=== PATIENT | male | born 1955 | race Caucasian/White ===

== ENCOUNTER 2016-11-11 19:24 | Inpatient (IN) | payer MEDICARE ==
[~2016-11-11] VITALS: Ht 180.3 cm; Wt 149.7 kg
[~2016-11-11 19:24] MED LIST: AMLODIPINE10 MG PO; AUGMENTIN 875 M1 TAB PO; BLEPH-10 5 ML5 ML OP; BUMEX1 MG PO; BUSPAR10 MG PO; CIPROFLOXACIN500 MG PO; CLONIDINE0.2 MG PO; DIABETA5 MG PO; FLOMAX0.4 MG PO; FLUOXETINE40 MG PO; HUMALOG100 U/ML SQ; HUMULIN N100 UNIT/1 SC; HYDROCODONE BIT1 T11 PO; JANUVIA100 MG PO; K-Dur 20MEQ20 MEQ PO; LANTUS100 U/ML SC; LEVOFLOXACIN500 MG PO; LISINOPRIL/HCTZ1 TA1 PO; LISINOPRIL/HCTZ1 TA4 PO; LOPRESSOR100 MG PO; METOPROLOL SUC200 M1 PO; MINIPRESS2 M1 PO; NORCO 325 MG-51 TAB PO; NORCO 5-325 TA1 EACH PO; NORVASC10 MG PO; PAROXETINE HCL40 MG PO; PAXIL40 MG PO; PRAZOSIN HCL2 MG PO; PRINIVIL10 MG PO; TORADOL10 MG PO; ULTRAM50 MG PO; VICODIN ES 7501 TAB PO; VITAMIN D5000 I3 PO; VITAMIN D5000 IU PO; ZOVIRAX200 MG PO
[2016-11-11 19:30] VITALS: BP 134/84
[2016-11-11] MEDS ORDERED: OXYCODONE HCL5 MG PO (19:39)
[2016-11-11 20:16] LABS: BASO % 0.4 % (0.0-1.0); EOS # 0.2 10*3/uL (0.0-0.4); EOS % 1.6 % (1.0-4.0); IG # 0.2 10*3/uL (0.0-0.1); LYMPH # 1.4 10*3/uL (1.3-4.4); MEAN CELL VOLUME 89.7 fl (80.0-94.0); MEAN CORPUSCULAR HGB 30.8 pg (27.0-31.0); MEAN CORPUSCULAR HGB CONC 34.3 g/dl (33.0-37.0); MEAN PLATELET VOLUME 11.4 fl (9.6-12.3); MONO # 0.6 10*3/uL (0.1-1.0); MONO % 5.1 % (3.0-9.0); NEUT # 8.5 10*3/uL (2.3-7.9); NEUT % 78.3 % (47.0-73.0); PLATELET COUNT AUTOMATED 186 10*3/uL (130-400); WHITE BLOOD COUNT 10.8 10*3/uL (4.8-10.8)
[2016-11-11 20:28] LABS: INTERNATIONAL NORM RATIO 1.1 (2.0-3.5); PROTHROMBIN TIME 11.4 SECONDS (9.0-12.4)
[2016-11-11 20:34] LABS: ALBUMIN 3.5 gm/dl (3.1-4.5); ALKALINE PHOSPHATASE 113 U/L (45-117); BILIRUBIN, TOTAL 0.4 mg/dl (0.2-1.0); BUN 47 mg/dl (7-24); CARBON DIOXIDE 27 mmol/L (21-32); CHLORIDE 96 mmol/L (98-107); EST GLOM FILT AFRICAN AMERICAN 23 ml/min; GLUCOSE 290 mg/dL (65-99); MAGNESIUM 1.6 mg/dL (1.5-2.1); POTASSIUM 4.1 mmol/L (3.5-5.1); SGOT/AST 11 IU/L (3-35); SGPT/ALT 16 U/L (12-78); SODIUM 139 mmol/L (136-145); TOTAL PROTEIN 7.5 gm/dL (6.4-8.2)
[2016-11-11 20:38] LABS: TROPONIN I < 0.015 ng/ml (<0.045)
[2016-11-11 22:13] LABS: LA>2 REFLEX 2 HR DRAW NOW
[2016-11-11 22:57] LABS: LA>2 RFLX FOLLOW UP AT 2 HRS 3.1 mmol/L (0.4-2.0)
[2016-11-12] VITALS (8 sets, daily range): BP systolic 118–179; BP diastolic 50–82
[2016-11-12 00:32] LABS: LA>2 REFLEX 4 HR DRAW NOW
[2016-11-12 06:08] LABS: ALBUMIN 2.9 gm/dl (3.1-4.5); BILIRUBIN, TOTAL 0.3 mg/dl (0.2-1.0); MAGNESIUM 1.8 mg/dL (1.5-2.1); PHOSPHOROUS 4.8 mg/dL (2.5-4.9); POTASSIUM 3.8 mmol/L (3.5-5.1); TOTAL PROTEIN 6.4 gm/dL (6.4-8.2)
[2016-11-12 06:10] LABS: HEMOGLOBIN A1c 9.8 % (4.8-5.6)
[2016-11-12 06:14] LABS: BASO # 0.1 10*3/uL (0.0-0.1); BASO % 0.4 % (0.0-1.0); EOS # 0.3 10*3/uL (0.0-0.4); EOS % 2.7 % (1.0-4.0); HEMATOCRIT 32.2 % (42.0-52.0); HEMOGLOBIN 10.7 g/dl (14.0-18.0); IG # 0.2 10*3/uL (0.0-0.1); LYMPH # 2.1 10*3/uL (1.3-4.4); LYMPH % 18.4 % (27.0-41.0); MEAN CORPUSCULAR HGB 30.8 pg (27.0-31.0); MEAN CORPUSCULAR HGB CONC 33.2 g/dl (33.0-37.0); MEAN PLATELET VOLUME 11.3 fl (9.6-12.3); MONO # 0.8 10*3/uL (0.1-1.0); MONO % 6.7 % (3.0-9.0); NEUT % 70.3 % (47.0-73.0); PLATELET COUNT AUTOMATED 164 10*3/uL (130-400); RED BLOOD COUNT 3.47 10*6/uL (4.50-5.90); RED CELL DISTRI WIDTH 13.9 % (0-14.5); WHITE BLOOD COUNT 11.4 10*3/uL (4.8-10.8)
[2016-11-12 06:16] LABS: MEAN CELL VOLUME 92.8 fl (80.0-94.0)
[2016-11-12 06:21] LABS: INTERNATIONAL NORM RATIO 1.1 (2.0-3.5); PROTHROMBIN TIME 11.5 SECONDS (9.0-12.4)
[2016-11-12 06:59] LABS: VITAMIN D, 25-HYDROXY 28.1 ng/mL (30-100)
[2016-11-12 07:01] LABS: FOLIC ACID > 24.00 ng/mL (>5.38)
[2016-11-12] MEDS ORDERED: LASIX40 MG PO (16:12)
[2016-11-12] MEDS ORDERED: Lasix80 MG PO (16:12)
[2016-11-12] MEDS ORDERED: HYDRALAZINE HYD50 MG PO ×2 (16:14→16:15)
[2016-11-12] MEDS ORDERED: COZAAR100 MG PO (16:15)
[2016-11-12] MEDS ORDERED: RENAL VITAMIN0.8 MG PO (16:16)
[2016-11-12] MEDS ORDERED: LEVEMIR10 ML SQ (16:16)
[2016-11-13] VITALS: BP 161/62
[2016-11-13 07:23] LABS: POTASSIUM 3.8 mmol/L (3.5-5.1)
[2016-11-13 08:00] VITALS: BP 160/64
[2016-11-13 08:08] LABS: BASO # 0.1 10*3/uL (0.0-0.1); BASO % 0.5 % (0.0-1.0); EOS # 0.3 10*3/uL (0.0-0.4); HEMATOCRIT 32.1 % (42.0-52.0); HEMOGLOBIN 10.8 g/dl (14.0-18.0); IG # 0.1 10*3/uL (0.0-0.1); LYMPH # 1.3 10*3/uL (1.3-4.4); LYMPH % 13.2 % (27.0-41.0); MEAN CORPUSCULAR HGB 31.3 pg (27.0-31.0); MEAN CORPUSCULAR HGB CONC 33.6 g/dl (33.0-37.0); MEAN PLATELET VOLUME 9.7 fl (9.6-12.3); MONO # 0.7 10*3/uL (0.1-1.0); MONO % 7.3 % (3.0-9.0); NEUT # 7.4 10*3/uL (2.3-7.9); NEUT % 74.8 % (47.0-73.0); PLATELET COUNT AUTOMATED 174 10*3/uL (130-400); RED BLOOD COUNT 3.45 10*6/uL (4.50-5.90); WHITE BLOOD COUNT 9.9 10*3/uL (4.8-10.8)
[2016-11-13 11:24] LABS: BILIRUBIN 1+ (NEGATIVE); BLOOD TRACE-LYSED (NEGATIVE); CLARITY CLOUDY (CLEAR); COLOR YELLOW (YELLOW); GLUCOSE 1+ (NEGATIVE); KETONE TRACE (NEGATIVE); LEUKO ESTERASE NEGATIVE (NEGATIVE); NITRITE NEGATIVE (NEGATIVE); PROTEIN 3+ (NEGATIVE); SPECIFIC GRAVITY >= 1.030 (1.005-1.030); UROBILINOGEN 0.2 E.U./dl (0.2-1.0)
[2016-11-13 11:27] LABS: URINE AMPHETAMINES < 1000 (1000ng/ml); URINE BARBITURATES < 200 (200ng/ml); URINE COCAINE < 300 (300ng/ml)
[2016-11-13 11:52] LABS: BACTERIA 3+; URINE REFLEX COMMENT YES (NO)
[2016-11-13 12:00] VITALS: BP 169/52
[2016-11-13 16:10] VITALS: BP 141/59
[2016-11-13 20:00] VITALS: BP 157/74
[2016-11-14] VITALS: BP 156/56
[2016-11-14 06:52] LABS: POTASSIUM 3.7 mmol/L (3.5-5.1)
[2016-11-14 08:00] VITALS: BP 158/60
[2016-11-14 08:42] LABS: BASO % 0.3 % (0.0-1.0); EOS # 0.4 10*3/uL (0.0-0.4); EOS % 3.6 % (1.0-4.0); HEMATOCRIT 32.4 % (42.0-52.0); HEMOGLOBIN 11.1 g/dl (14.0-18.0); IG # 0.1 10*3/uL (0.0-0.1); LYMPH # 1.7 10*3/uL (1.3-4.4); LYMPH % 16.7 % (27.0-41.0); MEAN CELL VOLUME 90.5 fl (80.0-94.0); MEAN CORPUSCULAR HGB CONC 34.3 g/dl (33.0-37.0); MEAN PLATELET VOLUME 10.6 fl (9.6-12.3); MONO # 0.7 10*3/uL (0.1-1.0); MONO % 7.2 % (3.0-9.0); NEUT # 7.3 10*3/uL (2.3-7.9); PLATELET COUNT AUTOMATED 185 10*3/uL (130-400); RED BLOOD COUNT 3.58 10*6/uL (4.50-5.90); RED CELL DISTRI WIDTH 13.7 % (0-14.5); WHITE BLOOD COUNT 10.2 10*3/uL (4.8-10.8)
[2016-11-14 16:00] VITALS: BP 160/54
[2016-11-14 20:00] VITALS: BP 135/63; BP 137/64
[2016-11-15] VITALS: BP 117/57
[2016-11-15 06:43] LABS: BASO # 0.1 10*3/uL (0.0-0.1); BASO % 0.5 % (0.0-1.0); EOS # 0.4 10*3/uL (0.0-0.4); EOS % 3.8 % (1.0-4.0); HEMATOCRIT 34.1 % (42.0-52.0); HEMOGLOBIN 11.7 g/dl (14.0-18.0); IG # 0.2 10*3/uL (0.0-0.1); LYMPH # 1.8 10*3/uL (1.3-4.4); MEAN CELL VOLUME 90.7 fl (80.0-94.0); MEAN CORPUSCULAR HGB 31.1 pg (27.0-31.0); MEAN CORPUSCULAR HGB CONC 34.3 g/dl (33.0-37.0); MEAN PLATELET VOLUME 10.1 fl (9.6-12.3); MONO # 0.9 10*3/uL (0.1-1.0); MONO % 8.9 % (3.0-9.0); NEUT # 6.8 10*3/uL (2.3-7.9); NEUT % 67.1 % (47.0-73.0); PLATELET COUNT AUTOMATED 154 10*3/uL (130-400); RED BLOOD COUNT 3.76 10*6/uL (4.50-5.90); RED CELL DISTRI WIDTH 13.8 % (0-14.5); WHITE BLOOD COUNT 10.1 10*3/uL (4.8-10.8)
[2016-11-15 06:57] LABS: POTASSIUM 3.9 mmol/L (3.5-5.1)
[2016-11-15 08:00] VITALS: BP 130/70
[2016-11-15] MEDS ORDERED: SIMVASTATIN40 MG PO (10:49)
== END 2016-11-15 12:11 | disposition home or self-care (01) | DRG 391 ==
LOC: ED 19:24 → EDHOLD 22:06 → 4E 11-12 14:07
PROVIDERS: Emergency Medicine Emergency Medical Services; Hospitalist; Internal Medicine
PROC: 5A1D60Z (ICD-10-PCS; principal; 2016-11-12)
DX: K52.9 Noninfective gastroenteritis and colitis, unspecified (principal); N18.6 End stage renal disease; E87.2 Acidosis; E44.0 Moderate protein-calorie malnutrition; I12.0 Hypertensive chronic kidney disease with stage 5 chronic kidney disease or end stage renal disease; Z68.41 Body mass index [BMI] 40.0-44.9, adult; E11.22 Type 2 diabetes mellitus with diabetic chronic kidney disease; E83.51 Hypocalcemia; D64.9 Anemia, unspecified; E55.9 Vitamin D deficiency, unspecified; B95.8 Unspecified staphylococcus as the cause of diseases classified elsewhere; E11.65 Type 2 diabetes mellitus with hyperglycemia; E78.5 Hyperlipidemia, unspecified; E66.9 Obesity, unspecified; Z99.2 Dependence on renal dialysis; Z71.6 Tobacco abuse counseling; Z82.49 Family history of ischemic heart disease and other diseases of the circulatory system; Z83.3 Family history of diabetes mellitus; Z79.899 Other long term (current) drug therapy; Z79.4 Long term (current) use of insulin

== ENCOUNTER 2017-07-15 12:09 | Emergency (ER) | payer MEDICARE ==
[~2017-07-15] VITALS: Ht 180.3 cm; Wt 138.3 kg
[~2017-07-15 12:09] MED LIST changes: +COZAAR100 MG PO; +HYDRALAZINE HYD50 MG PO; +LASIX40 MG PO; +LEVEMIR10 ML SQ; +Lasix80 MG PO; +OXYCODONE HCL5 MG PO; +RENAL VITAMIN0.8 MG PO; +SIMVASTATIN40 MG PO
[2017-07-15 12:55] LABS: BASO % 0.3 % (0.0-1.0); EOS # 0.1 10*3/uL (0.0-0.4); HEMATOCRIT 28.9 % (42.0-52.0); HEMOGLOBIN 9.8 g/dl (14.0-18.0); LYMPH # 1.3 10*3/uL (1.3-4.4); LYMPH % 19.1 % (27.0-41.0); MEAN CELL VOLUME 90.3 fl (80.0-94.0); MEAN CORPUSCULAR HGB 30.6 pg (27.0-31.0); MEAN CORPUSCULAR HGB CONC 33.9 g/dl (33.0-37.0); MEAN PLATELET VOLUME 10.5 fl (9.6-12.3); MONO # 0.6 10*3/uL (0.1-1.0); MONO % 8.1 % (3.0-9.0); NEUT # 4.9 10*3/uL (2.3-7.9); NEUT % 70.6 % (47.0-73.0); PLATELET COUNT AUTOMATED 156 10*3/uL (130-400); RED CELL DISTRI WIDTH 13.5 % (0-14.5)
[2017-07-15 13:05] LABS: CREATININE 2.33 mg/dL (0.70-1.30); POTASSIUM 3.5 mmol/L (3.5-5.1)
[2017-07-15] MEDS ORDERED: TAMIFLU 75MG CA75 MG PO (13:52)
== END 2017-07-15 14:06 | disposition home or self-care (01) ==
LOC: ED 12:09
PROVIDERS: Emergency Medicine
DX: J11.1 Influenza due to unidentified influenza virus with other respiratory manifestations (principal); I12.0 Hypertensive chronic kidney disease with stage 5 chronic kidney disease or end stage renal disease; E11.22 Type 2 diabetes mellitus with diabetic chronic kidney disease; N18.6 End stage renal disease; Z79.899 Other long term (current) drug therapy; Z79.4 Long term (current) use of insulin

== ENCOUNTER → 2017-09-29 | Outpatient (CLI) | payer MEDICARE ==
[~2017-09-29] MED LIST changes: +TAMIFLU 75MG CA75 MG PO
== END | disposition home or self-care (01) ==
LOC: RESCLI 00:50
DX: I12.0 Hypertensive chronic kidney disease with stage 5 chronic kidney disease or end stage renal disease (principal); E11.22 Type 2 diabetes mellitus with diabetic chronic kidney disease; N18.6 End stage renal disease; N40.0 Benign prostatic hyperplasia without lower urinary tract symptoms; M95.8 Other specified acquired deformities of musculoskeletal system; F32.9 Major depressive disorder, single episode, unspecified; K21.9 Gastro-esophageal reflux disease without esophagitis; Z79.4 Long term (current) use of insulin; E66.01 Morbid (severe) obesity due to excess calories; Z68.41 Body mass index [BMI] 40.0-44.9, adult; Z99.2 Dependence on renal dialysis

== ENCOUNTER → 2017-10-27 | Outpatient (CLI) | payer MEDICARE | END | disposition home or self-care (01) | LOC: RESCLI 04:32 | DX: I12.0 Hypertensive chronic kidney disease with stage 5 chronic kidney disease or end stage renal disease (principal); E11.22 Type 2 diabetes mellitus with diabetic chronic kidney disease; N18.6 End stage renal disease; E66.01 Morbid (severe) obesity due to excess calories; N40.0 Benign prostatic hyperplasia without lower urinary tract symptoms; M95.8 Other specified acquired deformities of musculoskeletal system; F32.9 Major depressive disorder, single episode, unspecified; K21.9 Gastro-esophageal reflux disease without esophagitis; M79.89 Other specified soft tissue disorders; I73.9 Peripheral vascular disease, unspecified; R10.819 Abdominal tenderness, unspecified site; Z99.2 Dependence on renal dialysis; Z68.41 Body mass index [BMI] 40.0-44.9, adult; Z79.4 Long term (current) use of insulin; Z80.3 Family history of malignant neoplasm of breast ==

== ENCOUNTER → 2017-11-13 | Outpatient (CLI) | payer MEDICARE | END | disposition home or self-care (01) | LOC: US 11-03 03:57 | DX: I25.10 Atherosclerotic heart disease of native coronary artery without angina pectoris (principal); I73.9 Peripheral vascular disease, unspecified; R10.819 Abdominal tenderness, unspecified site; M79.604 Pain in right leg ==

== ENCOUNTER → 2017-11-17 | Outpatient (CLI) | payer MEDICARE | END | disposition home or self-care (01) | LOC: LAB 09:46 | DX: K76.0 Fatty (change of) liver, not elsewhere classified (principal) ==

== ENCOUNTER → 2017-11-24 | Outpatient (CLI) | payer MEDICARE | END | disposition home or self-care (01) | LOC: RESCLI 02:37 | DX: I12.0 Hypertensive chronic kidney disease with stage 5 chronic kidney disease or end stage renal disease (principal); E11.22 Type 2 diabetes mellitus with diabetic chronic kidney disease; N18.6 End stage renal disease; E66.01 Morbid (severe) obesity due to excess calories; K21.9 Gastro-esophageal reflux disease without esophagitis; I73.9 Peripheral vascular disease, unspecified; N40.0 Benign prostatic hyperplasia without lower urinary tract symptoms; F32.9 Major depressive disorder, single episode, unspecified; M79.89 Other specified soft tissue disorders; F17.200 Nicotine dependence, unspecified, uncomplicated; R10.819 Abdominal tenderness, unspecified site; Z99.2 Dependence on renal dialysis; Z68.41 Body mass index [BMI] 40.0-44.9, adult; Z79.4 Long term (current) use of insulin ==

== ENCOUNTER → 2017-11-26 | Outpatient (CLI) | payer MEDICARE ==
[2017-11-26 14:30] LABS: CHOLESTEROL 152 mg/dL (<200); HDL CHOLESTEROL 29 mg/dl (40-60); LDL CHOLESTEROL 77 mg/dL (9-159); TRIGLYCERIDES 228 mg/dl (<150); VLDL CHOLESTEROL 46 mg/dL (6-40)
== END | disposition home or self-care (01) ==
LOC: LAB 13:37
PROVIDERS: Internal Medicine
DX: E11.22 Type 2 diabetes mellitus with diabetic chronic kidney disease (principal); I73.9 Peripheral vascular disease, unspecified

== ENCOUNTER → 2017-12-31 | Outpatient (CLI) | payer MEDICARE | END | disposition home or self-care (01) | LOC: RESCLI 03:37 | DX: F32.9 Major depressive disorder, single episode, unspecified (principal); I12.0 Hypertensive chronic kidney disease with stage 5 chronic kidney disease or end stage renal disease; E11.22 Type 2 diabetes mellitus with diabetic chronic kidney disease; N18.6 End stage renal disease; K21.9 Gastro-esophageal reflux disease without esophagitis; I73.9 Peripheral vascular disease, unspecified; N40.0 Benign prostatic hyperplasia without lower urinary tract symptoms; E66.01 Morbid (severe) obesity due to excess calories; Z68.41 Body mass index [BMI] 40.0-44.9, adult; Z99.2 Dependence on renal dialysis; Z79.4 Long term (current) use of insulin; Z79.899 Other long term (current) drug therapy; Z87.891 Personal history of nicotine dependence ==

== ENCOUNTER 2018-06-11 10:57 | Inpatient (IN) | payer MEDICARE ==
[~2018-06-11] VITALS: Ht 180.3 cm; Wt 141.2 kg
--- NOTE | ~2018-06-11 | CON ---
[place], [place] REPORT OF CONSULTATION NAME: MILA ROTH UNIT #: [id number] ROOM: 406 DOCTOR: IRMA TAYLOR DMD BIRTHDATE: [birth year] DOS: 06/14/2018 Consultation for a right-sided facial swelling. On exam, minimal extraoral swelling noted. The patient denies any dyspnea or dysphagia. Intraoral exam, minimal tenderness in the right buccal vestibule. Teeth in extensive disrepair with extreme wear noted approximating the pulp chamber of multiple teeth. Tooth #6 is carious to the gumline. No other pulpal exposures are noted. Discussed treatment options with the patient. Recommend full mouth extraction and denture placement. Minimal treatment would be to have tooth #6 extracted. The patient chose to have treatment by private dentist due to cost. The patient is okay for dental discharge. Recommend finding private dentist for surgical extraction. IRMA TAYLOR DMD CM:CONSTR:REPORT OF CONSULTATION [id number] 06/15/18 0613 interface
[2018-06-11 11:01] VITALS: BP 145/51
[2018-06-11 11:27] LABS: BASO # 0.1 10*3/uL (0.0-0.1); BASO % 0.4 % (0.0-1.0); EOS # 0.3 10*3/uL (0.0-0.4); EOS % 2.3 % (1.0-4.0); HEMATOCRIT 34.1 % (42.0-52.0); HEMOGLOBIN 11.7 g/dl (14.0-18.0); LYMPH # 1.6 10*3/uL (1.3-4.4); LYMPH % 11.4 % (27.0-41.0); MEAN CELL VOLUME 92.4 fl (80.0-94.0); MEAN CORPUSCULAR HGB 31.7 pg (27.0-31.0); MEAN CORPUSCULAR HGB CONC 34.3 g/dl (33.0-37.0); MEAN PLATELET VOLUME 10.7 fl (9.6-12.3); MONO # 0.8 10*3/uL (0.1-1.0); MONO % 5.6 % (3.0-9.0); NEUT # 10.8 10*3/uL (2.3-7.9); NEUT % 78.7 % (47.0-73.0); PLATELET COUNT AUTOMATED 207 10*3/uL (130-400); RED BLOOD COUNT 3.69 10*6/uL (4.50-5.90); RED CELL DISTRI WIDTH 14.6 % (0-14.5); WHITE BLOOD COUNT 13.7 10*3/uL (4.8-10.8)
--- NOTE | 2018-06-11 11:46 | NUR ---
PT TO CT AT THIS TIME.---VALENTIN FIGUEREDO RN
[2018-06-11 11:58] LABS: ALBUMIN 3.1 gm/dl (3.1-4.5); CREATININE 3.36 mg/dL (0.70-1.30); POTASSIUM 3.3 mmol/L (3.5-5.1); TOTAL PROTEIN 7.4 gm/dL (6.4-8.2)
[2018-06-11] MEDS ORDERED: HYDROCODONE-AC1 EAC1 PO (12:06)
[2018-06-11] MEDS ORDERED: LANTUS SOL100 UNIT/1 SQ (12:08)
[2018-06-11] MEDS ORDERED: NOVOLOG10 ML SQ (12:09)
[2018-06-11] MEDS ORDERED: ASPIR LOW81 MG PO (12:14)
[2018-06-11] MEDS ORDERED: PROTONIX TR40 M1 PO (12:15)
[2018-06-11] MEDS ORDERED: METOPROLOL SUC100 M1 PO (12:16)
[2018-06-11] MEDS ORDERED: RENA-VITE1 TAB PO (12:17)
[2018-06-11] MEDS ORDERED: TAMSULOSIN HCL0.4 MG PO (12:17)
[2018-06-11] MEDS ORDERED: TERAZOSIN HCL2 M1 PO (12:18)
[2018-06-11] MEDS ORDERED: PAROXETINE40 MG PO (12:18)
[2018-06-11] MEDS ORDERED: LOSARTAN POTAS100 M1 PO (12:18)
[2018-06-11] MEDS ORDERED: VITAMIN B-121000 MC2 PO (12:20)
[2018-06-11] MEDS ORDERED: NEURONTIN300 MG PO (12:20)
[2018-06-11 14:13] VITALS: BP 115/46
[2018-06-11 14:30] VITALS: BP 131/46
--- NOTE | 2018-06-11 14:30 | NUR ---
A 62 YEAR OLD MALE PATIENT, admitted to [facility], under the services of BEV Curtis DO with a diagnosis of SAWYER, DENTAL ABSCESS. Chief complaint is DENTAL ABSCESS Patient arrived via CART WITH RN FROM ER Monitor applied. Initial assessment completed. Vital signs taken and recorded. See assessment for past medical history, medications and allergies. Patient and/or family oriented to unit. [facility] visitation policy reviewed. Clothing/patient valuable form completed. ZAIRA MOSS
--- NOTE | 2018-06-11 15:07 | NUR ---
[facility] CALLED TO DR ROBERTS OFFICE AT THIS TIME. STATES THEY WILL PASS CALL TO
--- NOTE | 2018-06-11 15:18 | NUR ---
MEDICATION RECONCILLIATION COMPLETED AT THIS TIME
--- NOTE | 2018-06-11 15:44 | NUR ---
DR TAYLOR CALLED AND MADE AWARE OF CONSULT AT THIS TIME. STATES HE CANNOT SEE PATIENT UNTIL THURSDAY. RN TO INFORM HOSPITALIST
[2018-06-11 15:45] VITALS: BP 115/55
--- NOTE | 2018-06-11 15:45 | NUR ---
HOSPITALIST DR POORNIMA BRANDT ON FLOOR AND MADE AWARE OF DR TAYLOR NOT BEING ABLE TOT SEE PATIENT UNTThursday
--- NOTE | 2018-06-11 19:02 | NUR ---
DR BRANDT MADE AWARE OF RN NOT BEING ABLE TO OBTAIN IV ACCESS AFTER MULTIPLE FAILED ATTEMPTS BY MULTIPLE RNS. STATES HE WILL PASS IT ALONG TO DR ALARCON ON THE NIGHT HOSPITALIST SHIFT.
[2018-06-11 20:00] VITALS: BP 166/66
--- NOTE | 2018-06-11 20:30 | NUR ---
IV SITE OBTAINED BY JAJA ALBERTO USING ULTRASOUND. 18G PLACED INTO RIGHT ANTECUBITAL. TOLERATED WELL BY PT. PHYSICIAN AWARE. IV FLUIDS INFUSING WITH EASE AT THIS TIME. DRESSING C/D/I. WILL CONTINUE TO MONITOR. CALL LIGHT IN REACH.
[2018-06-11 21:30] VITALS: BP 142/82
--- NOTE | 2018-06-11 22:00 | NUR ---
HS MEDICATIONS GIVEN AT THIS TIME. ASSESSMENT COMPLETE. IV FLUIDS INFUSING.PT ALERT ORIENTED AND PLEASANT MOOD. COOPERATIVE WITH STAFF. NO COMPLAINTS VOICED. RESPIRATIONS EASY AND UNLABORED ON ROOM AIR. BLOOD SUGAR OBTAINED, 201. 5 UNITS HUMALOG GIVEN PER ORDER. SNACK PROVIDED PER PT REQUEST. ALL NEEDS MET. WILL CONTINUE TO MONITOR. CALL LIGHT IN REACH.
[2018-06-12] VITALS: BP 146/77
--- NOTE | 2018-06-12 00:20 | NUR ---
24 HR chart check completed.
[2018-06-12 06:52] LABS: CREATININE 4.74 mg/dL (0.70-1.30); PHOSPHOROUS 4.9 mg/dL (2.5-4.9); POTASSIUM 3.4 mmol/L (3.5-5.1)
[2018-06-12 06:59] LABS: THYROID STIM HORMONE (HS) 1.33 uIU/ml (0.358-4.75)
[2018-06-12 07:01] LABS: BASO # 0.1 10*3/uL (0.0-0.1); BASO % 0.4 % (0.0-1.0); EOS # 0.4 10*3/uL (0.0-0.4); EOS % 3.1 % (1.0-4.0); HEMATOCRIT 32.2 % (42.0-52.0); HEMOGLOBIN 10.9 g/dl (14.0-18.0); LYMPH # 1.7 10*3/uL (1.3-4.4); LYMPH % 14.3 % (27.0-41.0); MEAN CELL VOLUME 92.5 fl (80.0-94.0); MEAN CORPUSCULAR HGB 31.3 pg (27.0-31.0); MEAN CORPUSCULAR HGB CONC 33.9 g/dl (33.0-37.0); MEAN PLATELET VOLUME 11.2 fl (9.6-12.3); MONO # 0.8 10*3/uL (0.1-1.0); MONO % 6.4 % (3.0-9.0); NEUT # 8.7 10*3/uL (2.3-7.9); NEUT % 74.3 % (47.0-73.0); RED BLOOD COUNT 3.48 10*6/uL (4.50-5.90); RED CELL DISTRI WIDTH 14.9 % (0-14.5); WHITE BLOOD COUNT 11.7 10*3/uL (4.8-10.8)
[2018-06-12 07:03] LABS: PLATELET COUNT AUTOMATED 140 10*3/uL (130-400)
[2018-06-12 12:00] VITALS: BP 135/66
[2018-06-12 16:00] VITALS: BP 158/62
--- NOTE | 2018-06-12 19:59 | NUR ---
TOOK OVER CARE OF PT. PT SITTING UP IN BED, ALERT ORIENTED AND PLEASANT MOOD. RESPIRATIONS EASY AND UNLABORED ON ROOM AIR. NO COMPLAINTS VOICED AT THIS TIME. ALL NEEDS MET. CALL LIGHT IN REACH.
[2018-06-12 20:00] VITALS: BP 151/91
--- NOTE | 2018-06-12 22:00 | NUR ---
HS MEDICATIONS TAKEN WITH EASE. COVERAGE GIVEN FOR BLOOD SUGAR OF 347. SNACK PROVIDED PER PT REQUEST. WILL CONTINUE TO MONITOR. CALL LIGHT IN REACH.
[2018-06-13] VITALS: BP 158/88
[2018-06-13 06:26] LABS: BASO # 0.1 10*3/uL (0.0-0.1); BASO % 0.4 % (0.0-1.0); EOS # 0.3 10*3/uL (0.0-0.4); EOS % 2.8 % (1.0-4.0); HEMATOCRIT 30.9 % (42.0-52.0); HEMOGLOBIN 10.3 g/dl (14.0-18.0); LYMPH # 1.7 10*3/uL (1.3-4.4); LYMPH % 15.1 % (27.0-41.0); MEAN CORPUSCULAR HGB 30.7 pg (27.0-31.0); MEAN CORPUSCULAR HGB CONC 33.3 g/dl (33.0-37.0); MEAN PLATELET VOLUME 10.9 fl (9.6-12.3); MONO # 0.6 10*3/uL (0.1-1.0); MONO % 5.6 % (3.0-9.0); NEUT # 8.3 10*3/uL (2.3-7.9); NEUT % 74.8 % (47.0-73.0); PLATELET COUNT AUTOMATED 158 10*3/uL (130-400); RED BLOOD COUNT 3.36 10*6/uL (4.50-5.90); RED CELL DISTRI WIDTH 14.5 % (0-14.5); WHITE BLOOD COUNT 11.1 10*3/uL (4.8-10.8)
--- NOTE | 2018-06-13 06:27 | NUR ---
PT RESTING IN BED, RESPIRATIONS EASY AND UNLABORED ON ROOM AIR. BLOOD SUGAR OBTAINED. 271, WILL COVER PER ORDER. IV ANTIBIOTICS INFUSING WITH EASE INTO RIGHT ARM IV SITE. NO COMPLAINTS VOICED BY PT AT THIS TIME. WILL CONTINUE TO MONITOR. CALL LIGHT IN REACH.
[2018-06-13 06:36] LABS: ALBUMIN 2.6 gm/dl (3.1-4.5); CREATININE 5.59 mg/dL (0.70-1.30); POTASSIUM 3.6 mmol/L (3.5-5.1); TOTAL PROTEIN 6.5 gm/dL (6.4-8.2)
[2018-06-13 08:00] VITALS: BP 141/87
[2018-06-13 12:00] VITALS: BP 115/86
--- NOTE | 2018-06-13 12:00 | NUR ---
SPOKE TO DR. TAYLOR, HE STATED IF PATIENT IS GOING TO STAY AGAIN TONIGHT HE WILL SEE PATIENT TOMORROW, DR. SON NOTIFIED
[2018-06-13 16:00] VITALS: BP 149/64
--- NOTE | 2018-06-13 18:12 | NUR ---
PT ALERTED NURSE TO PAIN AT IV SITE TO RIGHT ANTECUBITAL. FLUIDS STOPPED AND NEW SITE STARTED TO RIGHT WRIST WITH 22G X 1 ATTEMPT. PT TOLERATED WELL, BLOOD RETURN NOTED WITH NO PROBLEMS FLUSHING, IV INFUSING WITHOUT DIFFICULTY AT THIS TIME.
--- NOTE | 2018-06-13 18:25 | NUR ---
PT SEEN BY DR. ROBERTS AT THIS TIME.
[2018-06-13 20:00] VITALS: BP 160/53
[2018-06-14] VITALS: BP 115/56
--- NOTE | 2018-06-14 04:06 | NUR ---
PATIENT RESTING WITH NO S/S OF DISTRESS. BED IN LOWEST POSITION, CALL LIGHT IN REACH
[2018-06-14 08:00] VITALS: BP 140/50
--- NOTE | 2018-06-14 09:00 | NUR ---
Detention Officer in to talk to patient. Patient states lives at home with . There are few steps in the home. Physician: sapna lopez Pharmacy: [facility] health services: none Patient's level of ADLs: INDEPENDENT Patient has working utilities: all working DME: walker Follow-up physician's appointment after d/c: will be made by hospitalist nurse director upon discharge Does patient want to access PORTAL?: no Discharge plan discussed with patient, patient lives at home with , he uses a walker for ambulation, patient goes to dialysis Thursday, Thursday and Thursday and uses [facility] services for transportation, patient states he will be going home when able. discussed with him [facility] and he declines any services at this time, case management will follow for any needs. GENE DE LA CRUZ
[2018-06-14 12:00] VITALS: BP 110/52
--- NOTE | 2018-06-14 12:30 | NUR ---
PT SENT TO DIALYSIS
[2018-06-14 14:41] LABS: ALBUMIN 2.7 gm/dl (3.1-4.5); CREATININE 6.34 mg/dL (0.70-1.30); PHOSPHOROUS 6.1 mg/dL (2.5-4.9); POTASSIUM 3.8 mmol/L (3.5-5.1)
[2018-06-14 20:00] VITALS: BP 160/55
--- NOTE | 2018-06-14 20:58 | NUR ---
DR METZGER AWARE OF PATIENT BLOOD SUGAR RESULT. STATES ONLY TO GIVE 25 UNITS OF LANTUS TONIGHT.
--- NOTE | 2018-06-14 21:32 | NUR ---
MEDICATED WITH PRN NORCO FOR C/O PAIN RATED 7/10 ON A 0/10 PAIN SCALE
[2018-06-15] VITALS: BP 142/49
--- NOTE | 2018-06-15 05:17 | NUR ---
PATIENT CALLED OUT STATING HIS SUGAR FELT LOW. FINGER STICK 59. JUICE, CRACKERS, AND PEANUT BUTTER GIVEN.
--- NOTE | 2018-06-15 06:04 | NUR ---
BLOOD SUGAR RECHECK 120
[2018-06-15 08:00] VITALS: BP 126/81
--- NOTE | 2018-06-15 09:00 | NUR ---
case management visits with patient, patient states he will be going home when able and denies any home needs
[2018-06-15] MEDS ORDERED: CLEOCIN HCL300 MG PO (11:44)
[2018-06-15] MEDS ORDERED: FLORASTOR250 MG PO (11:44)
[2018-06-15 12:00] VITALS: BP 161/71
--- NOTE | 2018-06-15 15:32 | NUR ---
[facility] Discharge instructions reviewed with patient/family. Patient receptive and verbalizes understanding. Follow-up care arranged. Written instructions given to patient/family. LYNDA PATINO
== END 2018-06-15 15:15 | disposition home or self-care (01) | DRG 871 ==
LOC: ED 10:57 → 4E 13:22 → EDHOLD 13:22 → 4E 13:29
PROVIDERS: Internal Medicine Nephrology; Nurse Practitioner Family; Student in an Organized Health Care Education/Training Program; ADMIT Internal Medicine
PROC: 5A1D70Z Performance of Urinary Filtration, Intermittent, Less than 6 Hours Per Day (ICD-10-PCS; principal; 2018-06-14)
DX: A41.9 Sepsis, unspecified organism (principal); N18.6 End stage renal disease; E87.2 Acidosis; E87.1 Hypo-osmolality and hyponatremia; E44.0 Moderate protein-calorie malnutrition; Z68.41 Body mass index [BMI] 40.0-44.9, adult; N17.9 Acute kidney failure, unspecified; I12.0 Hypertensive chronic kidney disease with stage 5 chronic kidney disease or end stage renal disease; K04.7 Periapical abscess without sinus; E55.9 Vitamin D deficiency, unspecified; D64.9 Anemia, unspecified; E11.65 Type 2 diabetes mellitus with hyperglycemia; E66.9 Obesity, unspecified; E78.5 Hyperlipidemia, unspecified; F17.290 Nicotine dependence, other tobacco product, uncomplicated; K02.9 Dental caries, unspecified; K05.6 Periodontal disease, unspecified; E11.22 Type 2 diabetes mellitus with diabetic chronic kidney disease; E87.6 Hypokalemia; E87.8 Other disorders of electrolyte and fluid balance, not elsewhere classified; D72.829 Elevated white blood cell count, unspecified; Z71.6 Tobacco abuse counseling; Z99.2 Dependence on renal dialysis; Z79.4 Long term (current) use of insulin; Z90.5 Acquired absence of kidney; Z83.3 Family history of diabetes mellitus; Z82.49 Family history of ischemic heart disease and other diseases of the circulatory system; Z82.0 Family history of epilepsy and other diseases of the nervous system; Z79.899 Other long term (current) drug therapy

== ENCOUNTER → 2018-06-24 | Outpatient (CLI) | payer MEDICARE ==
[~2018-06-24] MED LIST changes: +ASPIR LOW81 MG PO; +CLEOCIN HCL300 MG PO; +FLORASTOR250 MG PO; +HYDROCODONE-AC1 EAC1 PO; +LANTUS SOL100 UNIT/1 SQ; +LOSARTAN POTAS100 M1 PO; +METOPROLOL SUC100 M1 PO; +NEURONTIN300 MG PO; +NOVOLOG10 ML SQ; +PAROXETINE40 MG PO; +PROTONIX TR40 M1 PO; +RENA-VITE1 TAB PO; +TAMSULOSIN HCL0.4 MG PO; +TERAZOSIN HCL2 M1 PO; +VITAMIN B-121000 MC2 PO
[2018-06-24 12:45] LABS: BILIRUBIN 1+ (NEGATIVE); BLOOD NEGATIVE (NEGATIVE); CLARITY SL CLOUDY (CLEAR); COLOR YELLOW (YELLOW); GLUCOSE NEGATIVE (NEGATIVE); KETONE 1+ (NEGATIVE); LEUKO ESTERASE 1+ (NEGATIVE); NITRITE NEGATIVE (NEGATIVE); SPECIFIC GRAVITY >= 1.030 (1.005-1.030); UROBILINOGEN 0.2 E.U./dl (0.2-1.0)
[2018-06-24 12:58] LABS: MUCOUS 1+; WBC 31-40 wbc/hpf (0-5)
== END | disposition home or self-care (01) ==
LOC: LAB 12:04
PROVIDERS: Urology
DX: C64.9 Malignant neoplasm of unspecified kidney, except renal pelvis (principal); R31.9 Hematuria, unspecified; D40.0 Neoplasm of uncertain behavior of prostate

== ENCOUNTER → 2018-07-23 | Outpatient (CLI) | payer MEDICARE | END | disposition home or self-care (01) | LOC: RESCLI 01:57 | DX: I13.2 Hypertensive heart and chronic kidney disease with heart failure and with stage 5 chronic kidney disease, or end stage renal disease (principal); E11.22 Type 2 diabetes mellitus with diabetic chronic kidney disease; N18.6 End stage renal disease; I50.32 Chronic diastolic (congestive) heart failure; E11.65 Type 2 diabetes mellitus with hyperglycemia; E11.49 Type 2 diabetes mellitus with other diabetic neurological complication; E66.01 Morbid (severe) obesity due to excess calories; E53.8 Deficiency of other specified B group vitamins; K21.9 Gastro-esophageal reflux disease without esophagitis; N40.0 Benign prostatic hyperplasia without lower urinary tract symptoms; F32.5 Major depressive disorder, single episode, in full remission; Z99.2 Dependence on renal dialysis; Z79.4 Long term (current) use of insulin; Z79.899 Other long term (current) drug therapy; Z88.8 Allergy status to other drugs, medicaments and biological substances ==

== ENCOUNTER → 2018-10-01 | Outpatient (CLI) | payer MEDICARE | END | disposition home or self-care (01) | LOC: RESCLI 03:24 | DX: E11.65 Type 2 diabetes mellitus with hyperglycemia (principal); E11.49 Type 2 diabetes mellitus with other diabetic neurological complication; I13.2 Hypertensive heart and chronic kidney disease with heart failure and with stage 5 chronic kidney disease, or end stage renal disease; E11.22 Type 2 diabetes mellitus with diabetic chronic kidney disease; N18.6 End stage renal disease; I50.32 Chronic diastolic (congestive) heart failure; K21.9 Gastro-esophageal reflux disease without esophagitis; N40.0 Benign prostatic hyperplasia without lower urinary tract symptoms; F32.5 Major depressive disorder, single episode, in full remission; E78.2 Mixed hyperlipidemia; M54.5 Low back pain; Z79.4 Long term (current) use of insulin; Z99.2 Dependence on renal dialysis ==

== ENCOUNTER → 2018-12-21 | Outpatient (CLI) | payer MEDICARE | END | disposition home or self-care (01) | LOC: RESCLI 01:43 | DX: E11.65 Type 2 diabetes mellitus with hyperglycemia (principal); K21.9 Gastro-esophageal reflux disease without esophagitis; F32.5 Major depressive disorder, single episode, in full remission; I13.2 Hypertensive heart and chronic kidney disease with heart failure and with stage 5 chronic kidney disease, or end stage renal disease; E11.22 Type 2 diabetes mellitus with diabetic chronic kidney disease; I50.32 Chronic diastolic (congestive) heart failure; N18.6 End stage renal disease; E78.2 Mixed hyperlipidemia; M54.41 Lumbago with sciatica, right side; G89.29 Other chronic pain; Z79.4 Long term (current) use of insulin ==

== ENCOUNTER → 2019-04-05 | Outpatient (CLI) | payer MEDICARE | END | disposition home or self-care (01) | LOC: RESCLI 01:45 | DX: I13.2 Hypertensive heart and chronic kidney disease with heart failure and with stage 5 chronic kidney disease, or end stage renal disease (principal); E11.49 Type 2 diabetes mellitus with other diabetic neurological complication; E11.22 Type 2 diabetes mellitus with diabetic chronic kidney disease; I50.32 Chronic diastolic (congestive) heart failure; N18.6 End stage renal disease; F32.5 Major depressive disorder, single episode, in full remission; G89.29 Other chronic pain; M54.5 Low back pain; E55.9 Vitamin D deficiency, unspecified; R35.0 Frequency of micturition; N40.1 Benign prostatic hyperplasia with lower urinary tract symptoms; E78.5 Hyperlipidemia, unspecified; Z99.2 Dependence on renal dialysis; Z79.899 Other long term (current) drug therapy; Z88.8 Allergy status to other drugs, medicaments and biological substances ==

== ENCOUNTER 2019-11-06 18:56 | Inpatient (IN) | payer MEDICARE ==
[~2019-11-06] VITALS: Ht 180.3 cm; Wt 136.2 kg
[2019-11-06] VITALS (7 sets, daily range): BP systolic 185–215; BP diastolic 75–99
[2019-11-06 19:56] LABS: BASO # 0.1 10*3/uL (0.0-0.1); BASO % 0.4 % (0.0-1.0); EOS # 0.1 10*3/uL (0.0-0.4); EOS % 0.6 % (1.0-4.0); HEMATOCRIT 32.3 % (42.0-52.0); LYMPH # 0.9 10*3/uL (1.3-4.4); LYMPH % 6.7 % (27.0-41.0); MEAN CELL VOLUME 93.6 fl (80.0-94.0); MEAN CORPUSCULAR HGB 31.9 pg (27.0-31.0); MEAN CORPUSCULAR HGB CONC 34.1 g/dl (33.0-37.0); MEAN PLATELET VOLUME 10.7 fl (9.6-12.3); MONO # 0.6 10*3/uL (0.1-1.0); MONO % 4.2 % (3.0-9.0); NEUT # 12.2 10*3/uL (2.3-7.9); NEUT % 87.2 % (47.0-73.0); PLATELET COUNT AUTOMATED 179 10*3/uL (130-400); RED BLOOD COUNT 3.45 10*6/uL (4.50-5.90)
[2019-11-06 20:12] LABS: ALBUMIN 3.3 gm/dl (3.1-4.5); CREATININE 5.46 mg/dL (0.70-1.30); TOTAL PROTEIN 7.5 gm/dL (6.4-8.2)
--- NOTE | 2019-11-06 20:15 | NUR ---
SPOKE WITH PATIENTS AND INFORMED HER AWAITING LABS AND XRAY. PATIENT GAVE CONSENT FOR ME TO SPEAK WITH .
[2019-11-06 20:20] LABS: THYROID STIM HORMONE (HS) 1.31 uIU/ml (0.358-4.75)
[2019-11-06 22:40] LABS: CREATININE 5.11 mg/dL (0.70-1.30); POTASSIUM 4.4 mmol/L (3.5-5.1)
--- NOTE | 2019-11-06 23:40 | NUR ---
IV INFILTRATED AT THIS TIME. LOOKING FOR NEW IV SITE.
[2019-11-07] VITALS (7 sets, daily range): BP systolic 140–181; BP diastolic 60–110
--- NOTE | 2019-11-07 00:37 | NUR ---
PATIENTS INFORMED OF ADMISSION PER PATIENTS REQUEST FOR ME TO CALL AND INFORM HER.
--- NOTE | 2019-11-07 01:25 | NUR ---
A 64, admitted to 5E, under the services of BEV Cornell DO with a diagnosis of HYPERGLYCEMIA, ACCELERATED HTN. Chief complaint is NAUSEA/VOMITING. Patient arrived via bed from ER. Monitor applied. Initial assessment completed. Vital signs taken and recorded. BEV CORNELL DO notified of admission to the unit. Orders received. See assessment for past medical history, medications and allergies. Patient and/or family oriented to unit. [address] visitation policy reviewed. Clothing/patient valuable form completed. NO OPEN WOUNDS ON ADMISSION. MULTIPLE SCABS/SCRATCHES. MEAGAN CARBAJAL
[2019-11-07] MEDS ORDERED: NEURONTIN100 MG PO (02:17)
[2019-11-07] MEDS ORDERED: Percocet 325 MG1 TAB PO (02:19)
[2019-11-07] MEDS ORDERED: SIMVASTATIN40 MG PO (02:20)
[2019-11-07] MEDS ORDERED: VITAMIN D350 MC2 PO (02:22)
[2019-11-07] MEDS ORDERED: CALCIUM ACETAT667 MG PO (02:24)
[2019-11-07] MEDS ORDERED: HYDRALAZINE HYD50 MG PO (02:26)
--- NOTE | 2019-11-07 02:28 | NUR ---
UPDATED MED REC PER MEDICATIONS PROVIDED BY PATIENT. PATIENT STATES THAT THE MEDICATIONS HE BROUGHT WITH HIM ARE HIS ONLY MEDICATIONS THAT HE TAKES EXCEPT HE DOES NOT HAVE HIS INSULINS WITH HIM
--- NOTE | 2019-11-07 02:35 | NUR ---
DR GASTELUM NOTIFIED OF UPDATED MED REC, BP 170/70 MANUALLY,& CRITICAL LACTIC OF 3.2. STATES THAT I CAN HOLD THE SEPSIS BOLUS PROTOCOL FLUIDS DUE TO EDEMATOUS LEGS AND CRACKLES IN THE BASES OF PATIENTS LUNGS. NO NEW ORDERS AT THIS TIME.
[2019-11-07 02:54] LABS: BILIRUBIN NEGATIVE (NEGATIVE); BLOOD 1+ (NEGATIVE); CLARITY CLEAR (CLEAR); COLOR YELLOW (YELLOW); GLUCOSE 3+ (NEGATIVE); KETONE NEGATIVE (NEGATIVE); LEUKO ESTERASE NEGATIVE (NEGATIVE); NITRITE NEGATIVE (NEGATIVE); PH 7.5 (5.0-9.0); UROBILINOGEN 0.2 E.U./dl (0.2-1.0)
[2019-11-07 03:01] LABS: RBC 21-30 rbc/hpf (0-2); WBC 0-2 wbc/hpf (0-5)
[2019-11-07 03:02] LABS: BACTERIA TRACE
[2019-11-07 03:41] LABS: BASO # 0.1 10*3/uL (0.0-0.1); BASO % 0.4 % (0.0-1.0); EOS # 0.1 10*3/uL (0.0-0.4); EOS % 0.4 % (1.0-4.0); HEMATOCRIT 32.5 % (42.0-52.0); LYMPH # 1.5 10*3/uL (1.3-4.4); LYMPH % 10.5 % (27.0-41.0); MEAN CELL VOLUME 95.9 fl (80.0-94.0); MEAN CORPUSCULAR HGB 31.3 pg (27.0-31.0); MEAN CORPUSCULAR HGB CONC 32.6 g/dl (33.0-37.0); MEAN PLATELET VOLUME 10.9 fl (9.6-12.3); MONO # 0.7 10*3/uL (0.1-1.0); MONO % 4.8 % (3.0-9.0); NEUT # 11.7 10*3/uL (2.3-7.9); NEUT % 83.1 % (47.0-73.0); PLATELET COUNT AUTOMATED 173 10*3/uL (130-400); RED BLOOD COUNT 3.39 10*6/uL (4.50-5.90); RED CELL DISTRI WIDTH 14.2 % (0-14.5)
[2019-11-07 03:54] LABS: CREATININE 5.46 mg/dL (0.70-1.30); POTASSIUM 4.2 mmol/L (3.5-5.1)
--- NOTE | 2019-11-07 04:17 | NUR ---
DR GASTELUM NOTIFIED OF CRITICAL LACTIC ACID OF 2.6.
--- NOTE | 2019-11-07 06:33 | NUR ---
NEW PATIENT CONSULT CALLED INTO DR YAO ANSWERING SERVICE.
--- NOTE | 2019-11-07 06:34 | NUR ---
[facility] NOTIFIED OF PT HAVING DIALYSIS MWF.
--- NOTE | 2019-11-07 08:07 | NUR ---
PHYSICAL THERAPY Physical therapy screen received and chart reviewed. Patient admitted for hypoglycemia. Recommend skilled PT evaluation if decline in functional mobility presents. Thank you. Arianna Alvarez,PT,DPT
--- NOTE | 2019-11-07 08:17 | NUR ---
Nursing screen received and chart reviewed. Patient admitted from home for hyperglycemia. If patient has a decline in ADLs, transfers, or functional mobility, please send OT orders. Thank you. Eloina Hines, OTR/L
--- NOTE | 2019-11-07 12:01 | NUR ---
Mission Commander in to talk to patient. Patient states lives at HOME with . There are 12 steps in the home. Physician: [facility] Pharmacy: [facility] Home health services: NONE Patient's level of ADLs: INDEPENDENT Patient has working utilities: YES DME: WALKING STICK Follow-up physician's appointment after d/c: WILL BE MADE BY HOSPITALIST NURSE DIRECTOR ON DISCHARGE Does patient want to access PORTAL?: NO Discharge plan PT LIVES AT HOME WITH HIS AND IS INDEPENDENT IN HIS CARE. STATES HE HAS DIALYSIS ON MWF. DENIES HE WILL HAVE ANY NEEDS ON DISCHARGE. PLAN IS TO RETURN HOME WHEN MEDICALLY STABLE. WILL TRANSPORT HIM HOME. WILL CONTINUE TO FOLLOW. . TAMIE LUNDY
--- NOTE | 2019-11-07 18:53 | NUR ---
NOTIFIED OF BP 212/92 MANUAL, NEW ORDERS GIVEN WILL RECHECK BP IN 1 HOUR, D/C ON HOLD AT THIS TIME
[2019-11-07 19:41] LABS: BASO # 0.1 10*3/uL (0.0-0.1); BASO % 0.3 % (0.0-1.0); EOS # 0.2 10*3/uL (0.0-0.4); EOS % 1.5 % (1.0-4.0); HEMATOCRIT 34.6 % (42.0-52.0); LYMPH % 12.9 % (27.0-41.0); MEAN CORPUSCULAR HGB 31.6 pg (27.0-31.0); MEAN CORPUSCULAR HGB CONC 34.7 g/dl (33.0-37.0); MEAN PLATELET VOLUME 11.9 fl (9.6-12.3); MONO # 0.7 10*3/uL (0.1-1.0); MONO % 4.4 % (3.0-9.0); NEUT # 12.5 10*3/uL (2.3-7.9); NEUT % 79.3 % (47.0-73.0); PLATELET COUNT AUTOMATED 213 10*3/uL (130-400); RED CELL DISTRI WIDTH 14.1 % (0-14.5); WHITE BLOOD COUNT 15.8 10*3/uL (4.8-10.8)
[2019-11-07 19:42] LABS: MEAN CELL VOLUME 91.1 fl (80.0-94.0)
--- NOTE | 2019-11-07 21:14 | NUR ---
SPOKE TO DR SINCLAIR, STATES PATIENT IS OKAY TO GO. EXPLAINED THAT APRESOLINE X1 ITME WAS NEVER GIVEN, BUT BLOOD PRESSURE IS DOWN TO 158/60 MANUALLY, PULSE 72. STATES TO GIVE NIGHT TIME MEDICATIONS AND PATIENT CAN BE D/C.
[2019-11-07 21:19] LABS: CREATININE 3.66 mg/dL (0.70-1.30); POTASSIUM 3.8 mmol/L (3.5-5.1)
--- NOTE | 2019-11-07 21:42 | NUR ---
Discharge instructions reviewed with patient/family. Patient receptive and verbalizes understanding. Follow-up care arranged. Written instructions given to patient/family. Hep lock removed to right hand. Patients down in ER parking lot. Patient off floor at this time. MEAGAN CARBAJAL
== END 2019-11-07 21:50 | disposition home or self-care (01) | DRG 637 ==
LOC: ED 18:56 → EDHOLD 23:53 → 5E 11-07 00:10
PROVIDERS: Emergency Medicine; Internal Medicine Nephrology; Student in an Organized Health Care Education/Training Program; ADMIT Internal Medicine
PROC: 5A1D70Z Performance of Urinary Filtration, Intermittent, Less than 6 Hours Per Day (ICD-10-PCS; principal; 2019-11-07)
DX: E11.65 Type 2 diabetes mellitus with hyperglycemia (principal); N18.6 End stage renal disease; I16.1 Hypertensive emergency; E87.2 Acidosis; E87.1 Hypo-osmolality and hyponatremia; E44.0 Moderate protein-calorie malnutrition; Z68.41 Body mass index [BMI] 40.0-44.9, adult; I12.0 Hypertensive chronic kidney disease with stage 5 chronic kidney disease or end stage renal disease; D64.9 Anemia, unspecified; E78.5 Hyperlipidemia, unspecified; R53.1 Weakness; D72.829 Elevated white blood cell count, unspecified; E11.22 Type 2 diabetes mellitus with diabetic chronic kidney disease; Z79.4 Long term (current) use of insulin; Z99.2 Dependence on renal dialysis; Z90.5 Acquired absence of kidney; Z87.891 Personal history of nicotine dependence; Z82.49 Family history of ischemic heart disease and other diseases of the circulatory system; Z83.3 Family history of diabetes mellitus; Z82.0 Family history of epilepsy and other diseases of the nervous system; Z79.899 Other long term (current) drug therapy

== ENCOUNTER → 2019-11-24 | Outpatient (CLI) | payer MEDICARE ==
[~2019-11-24] MED LIST changes: +CALCIUM ACETAT667 MG PO; +NEURONTIN100 MG PO; +Percocet 325 MG1 TAB PO; +VITAMIN D350 MC2 PO
== END | disposition home or self-care (01) ==
LOC: RESCLI 00:59
DX: E11.65 Type 2 diabetes mellitus with hyperglycemia (principal); I13.2 Hypertensive heart and chronic kidney disease with heart failure and with stage 5 chronic kidney disease, or end stage renal disease; E11.22 Type 2 diabetes mellitus with diabetic chronic kidney disease; N18.6 End stage renal disease; I50.32 Chronic diastolic (congestive) heart failure; M54.5 Low back pain; E55.9 Vitamin D deficiency, unspecified; N40.1 Benign prostatic hyperplasia with lower urinary tract symptoms; F32.5 Major depressive disorder, single episode, in full remission; Z99.2 Dependence on renal dialysis; Z90.5 Acquired absence of kidney; Z98.890 Other specified postprocedural states; Z79.899 Other long term (current) drug therapy

== ENCOUNTER → 2020-02-21 | Outpatient (CLI) | payer MEDICARE | END | disposition home or self-care (01) | LOC: RESCLI 01:24 | PROVIDERS: ATTEND Social Worker Clinical | DX: I12.0 Hypertensive chronic kidney disease with stage 5 chronic kidney disease or end stage renal disease (principal); E11.22 Type 2 diabetes mellitus with diabetic chronic kidney disease; N18.6 End stage renal disease; E11.319 Type 2 diabetes mellitus with unspecified diabetic retinopathy without macular edema; E78.5 Hyperlipidemia, unspecified; I10 Essential (primary) hypertension; E55.9 Vitamin D deficiency, unspecified; G89.29 Other chronic pain; E11.40 Type 2 diabetes mellitus with diabetic neuropathy, unspecified; Z79.899 Other long term (current) drug therapy; Z98.890 Other specified postprocedural states; Z90.5 Acquired absence of kidney ==

== ENCOUNTER 2020-03-31 09:20 | Emergency (ER) | payer MEDICARE ==
[2020-03-31 10:02] LABS: BASO # 0.1 10*3/uL (0.0-0.1); BASO % 0.5 % (0.0-1.0); EOS # 0.2 10*3/uL (0.0-0.4); EOS % 1.9 % (1.0-4.0); HEMATOCRIT 35.1 % (42.0-52.0); LYMPH # 1.4 10*3/uL (1.3-4.4); LYMPH % 12.8 % (27.0-41.0); MEAN CELL VOLUME 90.9 fl (80.0-94.0); MEAN CORPUSCULAR HGB 30.3 pg (27.0-31.0); MEAN CORPUSCULAR HGB CONC 33.3 g/dl (33.0-37.0); MEAN PLATELET VOLUME 10.3 fl (9.6-12.3); MONO # 0.7 10*3/uL (0.1-1.0); NEUT # 8.7 10*3/uL (2.3-7.9); NEUT % 78.3 % (47.0-73.0); PLATELET COUNT AUTOMATED 183 10*3/uL (130-400); RED BLOOD COUNT 3.86 10*6/uL (4.50-5.90); RED CELL DISTRI WIDTH 13.5 % (0-14.5); WHITE BLOOD COUNT 11.1 10*3/uL (4.8-10.8)
[2020-03-31 10:17] LABS: ALBUMIN 3.2 gm/dl (3.1-4.5); CREATININE 4.39 mg/dL (0.70-1.30); POTASSIUM 3.7 mmol/L (3.5-5.1); TOTAL PROTEIN 7.6 gm/dL (6.4-8.2)
[2020-03-31] MEDS ORDERED: LOMOTIL 2.5-0.1 EACH PO (11:52)
== END 2020-03-31 11:53 | disposition home or self-care (01) ==
LOC: ED 09:20
PROVIDERS: Physician Assistant
DX: K52.9 Noninfective gastroenteritis and colitis, unspecified (principal); I10 Essential (primary) hypertension; E11.9 Type 2 diabetes mellitus without complications; F17.200 Nicotine dependence, unspecified, uncomplicated; Z79.4 Long term (current) use of insulin; Z79.899 Other long term (current) drug therapy

== ENCOUNTER → 2020-05-01 | Outpatient (CLI) | payer MEDICARE ==
[~2020-05-01] MED LIST changes: +LOMOTIL 2.5-0.1 EACH PO
== END | disposition home or self-care (01) ==
LOC: RESCLI 09:24
PROVIDERS: ATTEND Internal Medicine
DX: I13.2 Hypertensive heart and chronic kidney disease with heart failure and with stage 5 chronic kidney disease, or end stage renal disease (principal); E11.22 Type 2 diabetes mellitus with diabetic chronic kidney disease; N18.6 End stage renal disease; I50.32 Chronic diastolic (congestive) heart failure; M54.5 Low back pain; E11.65 Type 2 diabetes mellitus with hyperglycemia; F32.5 Major depressive disorder, single episode, in full remission; E55.9 Vitamin D deficiency, unspecified; E78.5 Hyperlipidemia, unspecified; N40.1 Benign prostatic hyperplasia with lower urinary tract symptoms; E11.40 Type 2 diabetes mellitus with diabetic neuropathy, unspecified; D64.9 Anemia, unspecified; F17.210 Nicotine dependence, cigarettes, uncomplicated; Z99.2 Dependence on renal dialysis; Z79.899 Other long term (current) drug therapy; Z98.890 Other specified postprocedural states

== ENCOUNTER → 2020-08-14 | Outpatient (CLI) | payer MEDICARE ==
[2020-08-14 16:07] LABS: ALBUMIN 3.2 gm/dl (3.1-4.5); CREATININE 4.88 mg/dL (0.70-1.30); POTASSIUM 5.1 mmol/L (3.5-5.1); TOTAL PROTEIN 7.5 gm/dL (6.4-8.2)
[2020-08-14 16:55] LABS: BILIRUBIN Negative (Negative); BLOOD Negative (Negative); CLARITY Clear (Clear); COLOR Yellow (Yellow); GLUCOSE Trace (Negative); KETONE Trace (Negative); LEUKO ESTERASE Negative (Negative); NITRITE Negative (Negative); PH 7.5 (4.5-8.0); SPECIFIC GRAVITY 1.015 (1.001-1.030)
[2020-08-14 17:11] LABS: BACTERIA 1+
[2020-08-14 17:23] LABS: VITAMIN D, 25-HYDROXY 32.8 ng/mL (30-100)
== END | disposition home or self-care (01) ==
LOC: RESCLI 05:21
PROVIDERS: ATTEND Internal Medicine
DX: I13.2 Hypertensive heart and chronic kidney disease with heart failure and with stage 5 chronic kidney disease, or end stage renal disease (principal); I50.32 Chronic diastolic (congestive) heart failure; N18.6 End stage renal disease; M54.5 Low back pain; E11.65 Type 2 diabetes mellitus with hyperglycemia; N40.1 Benign prostatic hyperplasia with lower urinary tract symptoms; E11.40 Type 2 diabetes mellitus with diabetic neuropathy, unspecified; E55.9 Vitamin D deficiency, unspecified; E78.5 Hyperlipidemia, unspecified; F32.5 Major depressive disorder, single episode, in full remission; Z99.2 Dependence on renal dialysis; Z79.899 Other long term (current) drug therapy; Z98.890 Other specified postprocedural states

== ENCOUNTER 2020-11-13 13:32 | Emergency (ER) | payer MEDICARE ==
[2020-11-13 14:55] LABS: BASO # 0.1 10*3/uL (0.0-0.1); EOS # 0.3 10*3/uL (0.0-0.4); RED CELL DISTRI WIDTH 13.4 % (0-14.5)
[2020-11-13 15:09] LABS: ACT PARTIAL THROMBO TIME 26.7 SECONDS (20.0-32.1); INTERNATIONAL NORM RATIO 1.2 (2.0-3.5)
[2020-11-13 15:20] LABS: ALBUMIN 2.8 gm/dl (3.1-4.5); CREATININE 5.41 mg/dL (0.70-1.30)
[2020-11-13 15:33] LABS: BASO % 0.5 % (0.0-1.0); EOS % 1.8 % (1.0-4.0); HEMATOCRIT 34.2 % (42.0-52.0); LYMPH # 1.4 10*3/uL (1.3-4.4); LYMPH % 10.5 % (27.0-41.0); MEAN CELL VOLUME 92.7 fl (80.0-94.0); MEAN CORPUSCULAR HGB 30.4 pg (27.0-31.0); MEAN CORPUSCULAR HGB CONC 32.7 g/dl (33.0-37.0); MEAN PLATELET VOLUME 10.2 fl (9.6-12.3); MONO # 0.9 10*3/uL (0.1-1.0); MONO % 6.4 % (3.0-9.0); NEUT # 10.8 10*3/uL (2.3-7.9); NEUT % 79.5 % (47.0-73.0); PLATELET COUNT AUTOMATED 164 10*3/uL (130-400); RED BLOOD COUNT 3.69 10*6/uL (4.50-5.90); WHITE BLOOD COUNT 13.6 10*3/uL (4.8-10.8)
== END 2020-11-13 16:45 | disposition home or self-care (01) ==
LOC: ED 13:32
PROVIDERS: Emergency Medicine
DX: T82.838A Hemorrhage due to vascular prosthetic devices, implants and grafts, initial encounter (principal); Z79.899 Other long term (current) drug therapy; Z79.2 Long term (current) use of antibiotics; Z79.4 Long term (current) use of insulin; Z98.890 Other specified postprocedural states; Y83.8 Other surgical procedures as the cause of abnormal reaction of the patient, or of later complication, without mention of misadventure at the time of the procedure; Y92.89 Other specified places as the place of occurrence of the external cause

== ENCOUNTER → 2020-12-28 | Outpatient (CLI) | payer MEDICARE | END | disposition home or self-care (01) | LOC: RESCLI 00:45 | PROVIDERS: ATTEND Internal Medicine | DX: F32.5 Major depressive disorder, single episode, in full remission (principal); E11.40 Type 2 diabetes mellitus with diabetic neuropathy, unspecified; N40.1 Benign prostatic hyperplasia with lower urinary tract symptoms; I11.0 Hypertensive heart disease with heart failure; I50.32 Chronic diastolic (congestive) heart failure; E78.5 Hyperlipidemia, unspecified; E11.65 Type 2 diabetes mellitus with hyperglycemia; E53.8 Deficiency of other specified B group vitamins; Z79.899 Other long term (current) drug therapy; Z99.2 Dependence on renal dialysis; Z98.890 Other specified postprocedural states ==

== ENCOUNTER → 2021-01-04 | Outpatient (CLI) | payer MEDICARE | LOC: WOUNDCARE 09:28 | PROVIDERS: ATTEND Nurse Practitioner | DX: S81.802A Unspecified open wound, left lower leg, initial encounter (principal); E11.622 Type 2 diabetes mellitus with other skin ulcer; L97.222 Non-pressure chronic ulcer of left calf with fat layer exposed; E11.22 Type 2 diabetes mellitus with diabetic chronic kidney disease; I13.2 Hypertensive heart and chronic kidney disease with heart failure and with stage 5 chronic kidney disease, or end stage renal disease; N18.6 End stage renal disease; I50.9 Heart failure, unspecified; E11.51 Type 2 diabetes mellitus with diabetic peripheral angiopathy without gangrene; E11.319 Type 2 diabetes mellitus with unspecified diabetic retinopathy without macular edema; E66.01 Morbid (severe) obesity due to excess calories; F32.9 Major depressive disorder, single episode, unspecified; Z99.2 Dependence on renal dialysis; Z72.0 Tobacco use; Z68.38 Body mass index [BMI] 38.0-38.9, adult; Z71.6 Tobacco abuse counseling; X58.XXXA Exposure to other specified factors, initial encounter; Y93.89 Activity, other specified; Y92.89 Other specified places as the place of occurrence of the external cause; Y99.8 Other external cause status ==

== ENCOUNTER 2021-01-10 02:22 | Emergency (ER) | payer MEDICARE ==
[~2021-01-10] VITALS: Ht 180.3 cm; Wt 131.3 kg
[2021-01-10 02:37] LABS: BASO # 0.1 10*3/uL (0.0-0.1); BASO % 0.4 % (0.0-1.0); EOS # 0.2 10*3/uL (0.0-0.4); EOS % 1.9 % (1.0-4.0); HEMATOCRIT 32.2 % (42.0-52.0); LYMPH # 1.8 10*3/uL (1.3-4.4); LYMPH % 16.3 % (27.0-41.0); MEAN CELL VOLUME 94.4 fl (80.0-94.0); MEAN CORPUSCULAR HGB 30.2 pg (27.0-31.0); MEAN PLATELET VOLUME 10.3 fl (9.6-12.3); MONO # 0.8 10*3/uL (0.1-1.0); MONO % 6.9 % (3.0-9.0); NEUT # 8.2 10*3/uL (2.3-7.9); NEUT % 72.6 % (47.0-73.0); PLATELET COUNT AUTOMATED 216 10*3/uL (130-400); RED BLOOD COUNT 3.41 10*6/uL (4.50-5.90); RED CELL DISTRI WIDTH 14.3 % (0-14.5); WHITE BLOOD COUNT 11.3 10*3/uL (4.8-10.8)
== END 2021-01-10 03:44 | disposition home or self-care (01) ==
LOC: ED 02:22
PROVIDERS: Internal Medicine
DX: T82.838A Hemorrhage due to vascular prosthetic devices, implants and grafts, initial encounter (principal); E66.9 Obesity, unspecified; Z98.890 Other specified postprocedural states; Z90.5 Acquired absence of kidney; Z79.899 Other long term (current) drug therapy; Z79.4 Long term (current) use of insulin; Y84.8 Other medical procedures as the cause of abnormal reaction of the patient, or of later complication, without mention of misadventure at the time of the procedure; Y92.89 Other specified places as the place of occurrence of the external cause

== ENCOUNTER → 2021-01-11 | Outpatient (CLI) | payer MEDICARE | LOC: US 00:46 → WOUNDCARE 00:46 | PROVIDERS: ATTEND Nurse Practitioner | DX: S81.802D Unspecified open wound, left lower leg, subsequent encounter (principal); E11.622 Type 2 diabetes mellitus with other skin ulcer; L97.222 Non-pressure chronic ulcer of left calf with fat layer exposed; E11.22 Type 2 diabetes mellitus with diabetic chronic kidney disease; I13.2 Hypertensive heart and chronic kidney disease with heart failure and with stage 5 chronic kidney disease, or end stage renal disease; N18.6 End stage renal disease; I50.9 Heart failure, unspecified; E11.51 Type 2 diabetes mellitus with diabetic peripheral angiopathy without gangrene; E11.319 Type 2 diabetes mellitus with unspecified diabetic retinopathy without macular edema; E66.01 Morbid (severe) obesity due to excess calories; F32.9 Major depressive disorder, single episode, unspecified; Z99.2 Dependence on renal dialysis; Z72.0 Tobacco use; Z68.38 Body mass index [BMI] 38.0-38.9, adult; Z71.6 Tobacco abuse counseling; X58.XXXD Exposure to other specified factors, subsequent encounter ==

== ENCOUNTER → 2021-01-18 | Outpatient (CLI) | payer MEDICARE | LOC: WOUNDCARE 00:48 | PROVIDERS: ATTEND Nurse Practitioner | DX: S81.812D Laceration without foreign body, left lower leg, subsequent encounter (principal); E11.622 Type 2 diabetes mellitus with other skin ulcer; L97.222 Non-pressure chronic ulcer of left calf with fat layer exposed; E11.22 Type 2 diabetes mellitus with diabetic chronic kidney disease; I13.2 Hypertensive heart and chronic kidney disease with heart failure and with stage 5 chronic kidney disease, or end stage renal disease; N18.6 End stage renal disease; I50.9 Heart failure, unspecified; E11.51 Type 2 diabetes mellitus with diabetic peripheral angiopathy without gangrene; E11.319 Type 2 diabetes mellitus with unspecified diabetic retinopathy without macular edema; E66.01 Morbid (severe) obesity due to excess calories; F32.9 Major depressive disorder, single episode, unspecified; Z99.2 Dependence on renal dialysis; Z72.0 Tobacco use; Z68.38 Body mass index [BMI] 38.0-38.9, adult; Z71.6 Tobacco abuse counseling; X58.XXXD Exposure to other specified factors, subsequent encounter ==

== ENCOUNTER → 2021-01-28 | Outpatient (CLI) | payer MEDICARE | LOC: WOUNDCARE 01:49 | PROVIDERS: ATTEND Nurse Practitioner | DX: S81.812D Laceration without foreign body, left lower leg, subsequent encounter (principal); E11.622 Type 2 diabetes mellitus with other skin ulcer; L97.222 Non-pressure chronic ulcer of left calf with fat layer exposed; E11.22 Type 2 diabetes mellitus with diabetic chronic kidney disease; I13.2 Hypertensive heart and chronic kidney disease with heart failure and with stage 5 chronic kidney disease, or end stage renal disease; N18.6 End stage renal disease; I50.9 Heart failure, unspecified; E11.51 Type 2 diabetes mellitus with diabetic peripheral angiopathy without gangrene; E11.319 Type 2 diabetes mellitus with unspecified diabetic retinopathy without macular edema; E66.01 Morbid (severe) obesity due to excess calories; F32.9 Major depressive disorder, single episode, unspecified; Z99.2 Dependence on renal dialysis; Z72.0 Tobacco use; Z68.38 Body mass index [BMI] 38.0-38.9, adult; Z71.6 Tobacco abuse counseling; X58.XXXD Exposure to other specified factors, subsequent encounter ==

== ENCOUNTER → 2021-02-07 | Outpatient (CLI) | payer MEDICARE | LOC: WOUNDCARE 07:11 | PROVIDERS: ATTEND Nurse Practitioner | DX: S81.812D Laceration without foreign body, left lower leg, subsequent encounter (principal); E11.622 Type 2 diabetes mellitus with other skin ulcer; L97.222 Non-pressure chronic ulcer of left calf with fat layer exposed; L97.822 Non-pressure chronic ulcer of other part of left lower leg with fat layer exposed; E11.22 Type 2 diabetes mellitus with diabetic chronic kidney disease; I13.2 Hypertensive heart and chronic kidney disease with heart failure and with stage 5 chronic kidney disease, or end stage renal disease; N18.6 End stage renal disease; I50.9 Heart failure, unspecified; E11.51 Type 2 diabetes mellitus with diabetic peripheral angiopathy without gangrene; E11.319 Type 2 diabetes mellitus with unspecified diabetic retinopathy without macular edema; E66.01 Morbid (severe) obesity due to excess calories; F32.9 Major depressive disorder, single episode, unspecified; Z99.2 Dependence on renal dialysis; Z72.0 Tobacco use; Z68.38 Body mass index [BMI] 38.0-38.9, adult; Z71.6 Tobacco abuse counseling; X58.XXXD Exposure to other specified factors, subsequent encounter ==

== ENCOUNTER → 2021-02-15 | Outpatient (CLI) | payer MEDICARE | LOC: WOUNDCARE 01:03 | PROVIDERS: ATTEND Nurse Practitioner | DX: S81.812D Laceration without foreign body, left lower leg, subsequent encounter (principal); E11.622 Type 2 diabetes mellitus with other skin ulcer; L97.222 Non-pressure chronic ulcer of left calf with fat layer exposed; E11.22 Type 2 diabetes mellitus with diabetic chronic kidney disease; I13.2 Hypertensive heart and chronic kidney disease with heart failure and with stage 5 chronic kidney disease, or end stage renal disease; N18.6 End stage renal disease; I50.9 Heart failure, unspecified; E11.51 Type 2 diabetes mellitus with diabetic peripheral angiopathy without gangrene; E11.319 Type 2 diabetes mellitus with unspecified diabetic retinopathy without macular edema; E66.01 Morbid (severe) obesity due to excess calories; F32.9 Major depressive disorder, single episode, unspecified; Z99.2 Dependence on renal dialysis; Z72.0 Tobacco use; Z68.38 Body mass index [BMI] 38.0-38.9, adult; Z71.6 Tobacco abuse counseling; X58.XXXD Exposure to other specified factors, subsequent encounter ==

== ENCOUNTER → 2021-02-21 | Outpatient (CLI) | payer MEDICARE | LOC: WOUNDCARE 00:49 | PROVIDERS: ATTEND Nurse Practitioner | DX: S81.812D Laceration without foreign body, left lower leg, subsequent encounter (principal); E11.622 Type 2 diabetes mellitus with other skin ulcer; L97.222 Non-pressure chronic ulcer of left calf with fat layer exposed; I13.2 Hypertensive heart and chronic kidney disease with heart failure and with stage 5 chronic kidney disease, or end stage renal disease; N18.6 End stage renal disease; I50.9 Heart failure, unspecified; E11.51 Type 2 diabetes mellitus with diabetic peripheral angiopathy without gangrene; E11.319 Type 2 diabetes mellitus with unspecified diabetic retinopathy without macular edema; E66.01 Morbid (severe) obesity due to excess calories; F32.9 Major depressive disorder, single episode, unspecified; Z99.2 Dependence on renal dialysis; Z72.0 Tobacco use; Z68.38 Body mass index [BMI] 38.0-38.9, adult; Z71.6 Tobacco abuse counseling; X58.XXXD Exposure to other specified factors, subsequent encounter ==

== ENCOUNTER → 2021-04-02 | Outpatient (CLI) | payer MEDICARE | END | disposition home or self-care (01) | LOC: RESCLI 01:03 | PROVIDERS: ATTEND Internal Medicine | DX: M54.40 Lumbago with sciatica, unspecified side (principal); I13.2 Hypertensive heart and chronic kidney disease with heart failure and with stage 5 chronic kidney disease, or end stage renal disease; E11.22 Type 2 diabetes mellitus with diabetic chronic kidney disease; N18.6 End stage renal disease; I73.9 Peripheral vascular disease, unspecified; I50.32 Chronic diastolic (congestive) heart failure; F32.5 Major depressive disorder, single episode, in full remission; E78.5 Hyperlipidemia, unspecified; E11.40 Type 2 diabetes mellitus with diabetic neuropathy, unspecified; N40.1 Benign prostatic hyperplasia with lower urinary tract symptoms; E11.65 Type 2 diabetes mellitus with hyperglycemia; R19.7 Diarrhea, unspecified; Z99.2 Dependence on renal dialysis; Z90.5 Acquired absence of kidney; Z98.890 Other specified postprocedural states; Z79.4 Long term (current) use of insulin; Z79.899 Other long term (current) drug therapy ==

== ENCOUNTER 2021-07-22 21:22 | Inpatient (IN) | payer MEDICARE ==
[~2021-07-22] VITALS: Ht 180.3 cm; Wt 123.7 kg
[2021-07-22 21:27] VITALS: BP 196/81
[2021-07-22 21:59] LABS: BASO % 0.4 % (0.0-1.0); EOS % 0.3 % (1.0-4.0); HEMATOCRIT 31.7 % (42.0-52.0); LYMPH % 11.2 % (27.0-41.0); MEAN CELL VOLUME 97.2 fl (80.0-94.0); MEAN CORPUSCULAR HGB 31.3 pg (27.0-31.0); MEAN CORPUSCULAR HGB CONC 32.2 g/dl (33.0-37.0); MEAN PLATELET VOLUME 12.1 fl (9.6-12.3); MONO # 0.7 10*3/uL (0.1-1.0); MONO % 7.2 % (3.0-9.0); NEUT # 7.2 10*3/uL (2.3-7.9); NEUT % 79.9 % (47.0-73.0); PLATELET COUNT AUTOMATED 72 10*3/uL (130-400); RED BLOOD COUNT 3.26 10*6/uL (4.50-5.90); RED CELL DISTRI WIDTH 13.6 % (0-14.5)
[2021-07-22 22:16] LABS: CREATININE 7.8 mg/dL (0.70-1.30); POTASSIUM 5.4 mmol/L (3.5-5.1)
[2021-07-23] VITALS (8 sets, daily range): BP systolic 128–176; BP diastolic 53–88
[2021-07-23 04:13] LABS: BASO % 0.5 % (0.0-1.0); EOS # 0.1 10*3/uL (0.0-0.4); EOS % 1.1 % (1.0-4.0); HEMATOCRIT 28.5 % (42.0-52.0); LYMPH # 1.3 10*3/uL (1.3-4.4); LYMPH % 15.7 % (27.0-41.0); MEAN CORPUSCULAR HGB CONC 32.6 g/dl (33.0-37.0); MEAN PLATELET VOLUME 11.6 fl (9.6-12.3); MONO # 0.9 10*3/uL (0.1-1.0); MONO % 10.4 % (3.0-9.0); NEUT # 5.9 10*3/uL (2.3-7.9); NEUT % 71.3 % (47.0-73.0); RED CELL DISTRI WIDTH 13.6 % (0-14.5); WHITE BLOOD COUNT 8.3 10*3/uL (4.8-10.8)
[2021-07-23 04:23] LABS: PLATELET COUNT AUTOMATED 119 10*3/uL (130-400)
[2021-07-23 04:25] LABS: CREATININE 8.3 mg/dL (0.70-1.30); POTASSIUM 5.2 mmol/L (3.5-5.1)
[2021-07-23 04:36] LABS: THYROID STIM HORMONE (HS) 1.2 uIU/ml (0.358-4.75)
[2021-07-23] MEDS ORDERED: NEURONTIN300 MG PO (08:15)
[2021-07-23] MEDS ORDERED: DICYCLOMINE HYD20 MG PO (08:16)
[2021-07-23] MEDS ORDERED: JANUVIA25 MG PO (08:16)
[2021-07-23] MEDS ORDERED: LEVEMIR FL100 UNIT/1 SC (08:26)
[2021-07-23 16:37] LABS: BILIRUBIN Negative (Negative); BLOOD 1+ (Negative); CLARITY Turbid (Clear); COLOR Yellow (Yellow); GLUCOSE Negative (Negative); KETONE Negative (Negative); LEUKO ESTERASE 3+ (Negative); NITRITE Negative (Negative); PH 5.5 (4.5-8.0); UROBILINOGEN 0.2 E.U./dl (0.0-1.0)
[2021-07-23 16:54] LABS: BACTERIA 3+; WBC TNTC wbc/hpf (0-5)
[2021-07-24] VITALS: BP 124/43
[2021-07-24 06:55] LABS: CREATININE 5.9 mg/dL (0.70-1.30)
[2021-07-24 07:09] LABS: POTASSIUM 3.9 mmol/L (3.5-5.1)
[2021-07-24 07:28] LABS: BASO % 0.6 % (0.0-1.0); EOS # 0.2 10*3/uL (0.0-0.4); EOS % 3.1 % (1.0-4.0); HEMATOCRIT 27.9 % (42.0-52.0); LYMPH # 1.6 10*3/uL (1.3-4.4); LYMPH % 23.4 % (27.0-41.0); MEAN CELL VOLUME 94.9 fl (80.0-94.0); MEAN CORPUSCULAR HGB 31.3 pg (27.0-31.0); MEAN PLATELET VOLUME 12.3 fl (9.6-12.3); MONO # 0.9 10*3/uL (0.1-1.0); MONO % 12.9 % (3.0-9.0); RED BLOOD COUNT 2.94 10*6/uL (4.50-5.90); RED CELL DISTRI WIDTH 13.7 % (0-14.5); WHITE BLOOD COUNT 6.8 10*3/uL (4.8-10.8)
[2021-07-24 07:38] LABS: PLATELET COUNT AUTOMATED 163 10*3/uL (130-400)
[2021-07-24 08:00] VITALS: BP 125/44
[2021-07-24 12:00] VITALS: BP 125/44
[2021-07-24 16:00] VITALS: BP 121/38
[2021-07-24 20:00] VITALS: BP 147/77
[2021-07-25] VITALS: BP 144/62
[2021-07-25 05:56] LABS: CREATININE 4.82 mg/dL (0.70-1.30); POTASSIUM 4.1 mmol/L (3.5-5.1)
[2021-07-25 08:00] VITALS: BP 150/72
[2021-07-25 09:49] LABS: BASO % 0.4 % (0.0-1.0); EOS # 0.3 10*3/uL (0.0-0.4); EOS % 3.3 % (1.0-4.0); HEMATOCRIT 30.7 % (42.0-52.0); LYMPH # 1.3 10*3/uL (1.3-4.4); LYMPH % 17.1 % (27.0-41.0); MEAN CORPUSCULAR HGB 31.3 pg (27.0-31.0); MEAN CORPUSCULAR HGB CONC 31.9 g/dl (33.0-37.0); MEAN PLATELET VOLUME 10.6 fl (9.6-12.3); MONO # 0.7 10*3/uL (0.1-1.0); MONO % 9.3 % (3.0-9.0); NEUT # 5.3 10*3/uL (2.3-7.9); NEUT % 69.1 % (47.0-73.0); PLATELET COUNT AUTOMATED 158 10*3/uL (130-400); RED BLOOD COUNT 3.13 10*6/uL (4.50-5.90); RED CELL DISTRI WIDTH 13.3 % (0-14.5); WHITE BLOOD COUNT 7.6 10*3/uL (4.8-10.8)
[2021-07-25 09:56] LABS: MEAN CELL VOLUME 98.1 fl (80.0-94.0)
[2021-07-25 12:00] VITALS: BP 137/50
[2021-07-25 14:15] VITALS: BP 141/90
[2021-07-25] MEDS ORDERED: Humalog SQ (16:16)
[2021-07-25] MEDS ORDERED: NEURONTIN300 MG PO (16:29)
[2021-07-25] MEDS ORDERED: PERCOCET 5-3251 EACH PO ×2 (16:29→16:36)
[2021-07-26 09:07] LABS: HEPATITIS B SURFACE AG Negative (Negative)
== END 2021-07-25 18:15 | DRG 682 ==
LOC: ED 21:22 → EDHOLD 23:09 → 5E 23:09
PROVIDERS: Internal Medicine; Nurse Practitioner Family; Student in an Organized Health Care Education/Training Program; ADMIT Family Medicine; ATTEND Family Medicine
PROC: 5A1D70Z Performance of Urinary Filtration, Intermittent, Less than 6 Hours Per Day (ICD-10-PCS; principal; 2021-07-23)
PROC: 5A1D70Z Performance of Urinary Filtration, Intermittent, Less than 6 Hours Per Day (ICD-10-PCS; 2021-07-24)
DX: I13.11 Hypertensive heart and chronic kidney disease without heart failure, with stage 5 chronic kidney disease, or end stage renal disease (principal); N17.0 Acute kidney failure with tubular necrosis; N18.6 End stage renal disease; I16.1 Hypertensive emergency; E44.0 Moderate protein-calorie malnutrition; E87.1 Hypo-osmolality and hyponatremia; N39.0 Urinary tract infection, site not specified; Z68.39 Body mass index [BMI] 39.0-39.9, adult; R29.6 Repeated falls; D53.9 Nutritional anemia, unspecified; D69.6 Thrombocytopenia, unspecified; Z20.822 Contact with and (suspected) exposure to COVID-19; E11.22 Type 2 diabetes mellitus with diabetic chronic kidney disease; E11.65 Type 2 diabetes mellitus with hyperglycemia; E87.5 Hyperkalemia; E66.09 Other obesity due to excess calories; F17.210 Nicotine dependence, cigarettes, uncomplicated; Z71.6 Tobacco abuse counseling; E78.5 Hyperlipidemia, unspecified; I44.0 Atrioventricular block, first degree; I45.10 Unspecified right bundle-branch block; B96.20 Unspecified Escherichia coli [E. coli] as the cause of diseases classified elsewhere; Z79.4 Long term (current) use of insulin; Z82.49 Family history of ischemic heart disease and other diseases of the circulatory system; Z79.1 Long term (current) use of non-steroidal anti-inflammatories (NSAID); Z79.899 Other long term (current) drug therapy

== ENCOUNTER 2022-04-29 22:17 | Emergency (ER) | payer MEDICARE ==
[~2022-04-29] VITALS: Wt 108.9 kg
[~2022-04-29 22:17] MED LIST changes: +DICYCLOMINE HYD20 MG PO; +Humalog SQ; +JANUVIA25 MG PO; +LEVEMIR FL100 UNIT/1 SC; +PERCOCET 5-3251 EACH PO
[2022-05-01] MEDS ORDERED: AMIODARONE HCL100 M1 PO (18:38)
[2022-05-01] MEDS ORDERED: NORVASC5 MG PO (18:38)
[2022-05-01] MEDS ORDERED: PREDNISONE50 MG PO (18:39)
[2022-05-01] MEDS ORDERED: COZAAR50 M1 PO (18:39)
[2022-05-01] MEDS ORDERED: Synthroid,Levo50 MCG PO (18:40)
[2022-05-01] MEDS ORDERED: METOPROLOL SUCC50 M1 PO (18:40)
[2022-05-01] MEDS ORDERED: ALDACTONE25 M1 PO (18:41)
== END 2022-04-30 02:55 | disposition home or self-care (01) ==
LOC: ED 22:17
DX: E11.65 Type 2 diabetes mellitus with hyperglycemia (principal); I10 Essential (primary) hypertension; Z79.899 Other long term (current) drug therapy; Z98.890 Other specified postprocedural states

== ENCOUNTER 2022-05-01 13:52 | Inpatient (IN) | payer MEDICARE ==
[~2022-05-01] VITALS: Ht 180.3 cm; Wt 108.0 kg
[~2022-05-01 13:52] MED LIST changes: -ALDACTONE25 M1 PO; -AMIODARONE HCL100 M1 PO; -COZAAR50 M1 PO; -METOPROLOL SUCC50 M1 PO; -NORVASC5 MG PO; -PREDNISONE50 MG PO; -Synthroid,Levo50 MCG PO
[2022-05-01 14:17] VITALS: BP 150/62
[2022-05-01 15:50] LABS: HEMATOCRIT 31.9 % (42.0-52.0); MEAN CELL VOLUME 97.3 fl (80.0-94.0); MEAN CORPUSCULAR HGB 30.5 pg (27.0-31.0); MEAN CORPUSCULAR HGB CONC 31.3 g/dl (33.0-37.0); MEAN PLATELET VOLUME 11.4 fl (9.6-12.3); PLATELET COUNT AUTOMATED 131 10*3/uL (130-400); RED BLOOD COUNT 3.28 10*6/uL (4.50-5.90); RED CELL DISTRI WIDTH 17.7 % (0-14.5); WHITE BLOOD COUNT 14.6 10*3/uL (4.8-10.8)
[2022-05-01 15:58] LABS: MANUAL DIFF REFLEX YES
[2022-05-01 16:01] LABS: ACT PARTIAL THROMBO TIME 24.2 SECONDS (20.0-32.1); INTERNATIONAL NORM RATIO 1.1 (2.0-3.5)
[2022-05-01 16:03] LABS: ALKALINE PHOSPHATASE 85 U/L (46-116); BUN 69 mg/dl (9-23); CHLORIDE 101 mmol/L (98-107); POTASSIUM 5.1 mmol/L (3.4-5.1); SGPT/ALT 8 U/L (10-49); SODIUM 137 mmol/L (136-145)
[2022-05-01 16:04] LABS: TOTAL PROTEIN 6.5 gm/dL (6.0-8.0)
[2022-05-01 16:37] LABS: TOTAL CELLS COUNTED 100 #CELLS
[2022-05-01 16:39] LABS: BURR CELLS FEW; PLATELET SUFFICIENCY NORMAL (NORMAL)
[2022-05-01 18:35] VITALS: BP 141/62
[2022-05-01] MEDS ORDERED: NORVASC5 MG PO (18:38)
[2022-05-01] MEDS ORDERED: AMIODARONE HCL100 M1 PO (18:38)
[2022-05-01] MEDS ORDERED: COZAAR50 M1 PO (18:39)
[2022-05-01] MEDS ORDERED: PREDNISONE50 MG PO (18:39)
[2022-05-01] MEDS ORDERED: METOPROLOL SUCC50 M1 PO (18:40)
[2022-05-01] MEDS ORDERED: Synthroid,Levo50 MCG PO (18:40)
[2022-05-01] MEDS ORDERED: ALDACTONE25 M1 PO (18:41)
[2022-05-01 21:15] VITALS: BP 138/33
[2022-05-01 21:25] VITALS: BP 154/63
[2022-05-02] VITALS: BP 120/63
[2022-05-02 06:46] LABS: BASO % 0.1 % (0.0-1.0); EOS % 0.2 % (1.0-4.0); HEMATOCRIT 26.9 % (42.0-52.0); LYMPH # 1.3 10*3/uL (1.3-4.4); LYMPH % 11.5 % (27.0-41.0); MEAN CELL VOLUME 95.4 fl (80.0-94.0); MEAN CORPUSCULAR HGB 30.5 pg (27.0-31.0); MEAN PLATELET VOLUME 10.1 fl (9.6-12.3); MONO # 0.8 10*3/uL (0.1-1.0); MONO % 7.4 % (3.0-9.0); NEUT # 8.9 10*3/uL (2.3-7.9); NEUT % 79.2 % (47.0-73.0); PLATELET COUNT AUTOMATED 129 10*3/uL (130-400); RED BLOOD COUNT 2.82 10*6/uL (4.50-5.90); RED CELL DISTRI WIDTH 17.5 % (0-14.5); WHITE BLOOD COUNT 11.3 10*3/uL (4.8-10.8)
[2022-05-02 06:59] LABS: INTERNATIONAL NORM RATIO 1.2 (2.0-3.5)
[2022-05-02 08:00] VITALS: BP 112/60
[2022-05-02 08:28] LABS: POTASSIUM 5.1 mmol/L (3.4-5.1)
[2022-05-02 08:32] LABS: THYROID STIM HORMONE (HS) 1.287 uIU/ml (0.550-4.780)
[2022-05-02 08:33] LABS: CREATININE 5.89 mg/dL (0.70-1.30); FREE T4 1.04 ng/dl (0.89-1.76)
[2022-05-02 09:59] LABS: BILIRUBIN Negative (Negative); CLARITY Turbid (Clear); GLUCOSE Negative (Negative)
[2022-05-02 10:00] LABS: BLOOD 2+ (Negative); KETONE Negative (Negative); PH 8.5 (4.5-8.0); SPECIFIC GRAVITY 1.015 (1.001-1.030)
[2022-05-02 10:01] LABS: LEUKO ESTERASE 3+ (Negative); NITRITE Positive (Negative)
[2022-05-02 10:02] LABS: WBC TNTC wbc/hpf (0-5)
[2022-05-02 11:17] LABS: VITAMIN D, 25-HYDROXY 36.2 ng/mL (30-100)
[2022-05-02 16:00] VITALS: BP 146/71
[2022-05-02 20:00] VITALS: BP 146/37
[2022-05-03] VITALS: BP 136/45
[2022-05-03 04:40] VITALS: BP 133/51
[2022-05-03 08:00] VITALS: BP 143/69
[2022-05-03 12:00] VITALS: BP 156/66
[2022-05-03 20:00] VITALS: BP 153/50
[2022-05-04] VITALS: BP 144/46
[2022-05-04 06:00] LABS: BASO % 0.1 % (0.0-1.0); CREATININE 4.8 mg/dL (0.70-1.30); EOS % 0.2 % (1.0-4.0); HEMATOCRIT 27.4 % (42.0-52.0); LYMPH # 1.1 10*3/uL (1.3-4.4); LYMPH % 8.3 % (27.0-41.0); MEAN CELL VOLUME 97.9 fl (80.0-94.0); MEAN CORPUSCULAR HGB 30.4 pg (27.0-31.0); MEAN PLATELET VOLUME 11.3 fl (9.6-12.3); MONO # 0.9 10*3/uL (0.1-1.0); MONO % 7.1 % (3.0-9.0); NEUT # 10.9 10*3/uL (2.3-7.9); NEUT % 82.9 % (47.0-73.0); PLATELET COUNT AUTOMATED 104 10*3/uL (130-400); POTASSIUM 5.4 mmol/L (3.4-5.1); WHITE BLOOD COUNT 13.2 10*3/uL (4.8-10.8)
[2022-05-04 08:00] VITALS: BP 137/58; BP 154/62
[2022-05-04 12:00] VITALS: BP 140/74
[2022-05-04 16:00] VITALS: BP 151/61
[2022-05-04 20:00] VITALS: BP 153/61
[2022-05-05] VITALS: BP 154/65
[2022-05-05 06:59] LABS: CREATININE 5.96 mg/dL (0.70-1.30)
[2022-05-05 07:04] LABS: POTASSIUM 6.2 mmol/L (3.4-5.1)
[2022-05-05 08:00] VITALS: BP 150/97
[2022-05-05 08:18] LABS: HEMATOCRIT 27.9 % (42.0-52.0); MEAN CELL VOLUME 96.5 fl (80.0-94.0); MEAN CORPUSCULAR HGB 30.4 pg (27.0-31.0); MEAN CORPUSCULAR HGB CONC 31.5 g/dl (33.0-37.0); MEAN PLATELET VOLUME 11.7 fl (9.6-12.3); PLATELET COUNT AUTOMATED 120 10*3/uL (130-400); RED BLOOD COUNT 2.89 10*6/uL (4.50-5.90); WHITE BLOOD COUNT 18.8 10*3/uL (4.8-10.8)
[2022-05-05 08:19] LABS: MANUAL DIFF REFLEX YES
[2022-05-05 08:38] LABS: BASOPHILS 1 % (0-1); PLATELET SUFFICIENCY LOW (NORMAL); TOTAL CELLS COUNTED 100 #CELLS; TOXIC GRANULATION SLIGHT; VACUOLATION OF NEUTROPHILS SLIGHT
[2022-05-05 08:39] LABS: ACANTHOCYTES FEW; BURR CELLS FEW; OVALOCYTES FEW; POLYCHROMASIA SLIGHT
[2022-05-05 12:00] VITALS: BP 152/45
[2022-05-05 16:00] VITALS: BP 154/52
[2022-05-05 20:00] VITALS: BP 155/40
[2022-05-06] VITALS (10 sets, daily range): BP systolic 103–164; BP diastolic 34–108
[2022-05-06 06:47] LABS: BASO % 0.2 % (0.0-1.0); EOS # 0.1 10*3/uL (0.0-0.4); EOS % 0.4 % (1.0-4.0); HEMATOCRIT 26.7 % (42.0-52.0); LYMPH # 0.8 10*3/uL (1.3-4.4); LYMPH % 5.9 % (27.0-41.0); MEAN CORPUSCULAR HGB 30.6 pg (27.0-31.0); MEAN CORPUSCULAR HGB CONC 32.2 g/dl (33.0-37.0); MEAN PLATELET VOLUME 10.8 fl (9.6-12.3); MONO # 0.9 10*3/uL (0.1-1.0); MONO % 6.7 % (3.0-9.0); NEUT # 10.9 10*3/uL (2.3-7.9); NEUT % 84.8 % (47.0-73.0); PLATELET COUNT AUTOMATED 134 10*3/uL (130-400); RED BLOOD COUNT 2.81 10*6/uL (4.50-5.90); WHITE BLOOD COUNT 12.8 10*3/uL (4.8-10.8)
[2022-05-06 06:58] LABS: CREATININE 5.23 mg/dL (0.70-1.30)
[2022-05-06 07:02] LABS: POTASSIUM 6.2 mmol/L (3.4-5.1)
[2022-05-06 08:55] LABS: POTASSIUM 5.7 mmol/L (3.4-5.1)
[2022-05-06 09:01] LABS: CREATININE 5.33 mg/dL (0.70-1.30)
[2022-05-07] VITALS: BP 151/83
[2022-05-07 07:58] LABS: BASO % 0.1 % (0.0-1.0); EOS # 0.1 10*3/uL (0.0-0.4); EOS % 0.5 % (1.0-4.0); HEMATOCRIT 26.1 % (42.0-52.0); LYMPH # 0.3 10*3/uL (1.3-4.4); LYMPH % 3.6 % (27.0-41.0); MEAN CELL VOLUME 95.3 fl (80.0-94.0); MEAN CORPUSCULAR HGB 30.7 pg (27.0-31.0); MEAN CORPUSCULAR HGB CONC 32.2 g/dl (33.0-37.0); MEAN PLATELET VOLUME 10.2 fl (9.6-12.3); MONO # 0.4 10*3/uL (0.1-1.0); MONO % 4.7 % (3.0-9.0); NEUT # 8.2 10*3/uL (2.3-7.9); NEUT % 88.3 % (47.0-73.0); PLATELET COUNT AUTOMATED 123 10*3/uL (130-400); RED BLOOD COUNT 2.74 10*6/uL (4.50-5.90); RED CELL DISTRI WIDTH 16.6 % (0-14.5); WHITE BLOOD COUNT 9.3 10*3/uL (4.8-10.8)
[2022-05-07 08:00] VITALS: BP 180/76
[2022-05-07 08:14] LABS: CREATININE 5.99 mg/dL (0.70-1.30)
[2022-05-07 08:21] LABS: POTASSIUM 6.2 mmol/L (3.4-5.1)
[2022-05-07 09:34] LABS: ACT PARTIAL THROMBO TIME 25.4 SECONDS (20.0-32.1); INTERNATIONAL NORM RATIO 1.1 (2.0-3.5)
[2022-05-07 12:00] VITALS: BP 107/91
[2022-05-07 16:00] VITALS: BP 140/49
[2022-05-07 17:29] LABS: BF LYMPHOCYTES 38 %; BF MACROPHAGES 29 %; BF MESOTHELIALS 1 %; BF MONOCYTES 3 %; BF NEUTROPHILS 29 %
[2022-05-07 20:00] VITALS: BP 152/53
[2022-05-08] VITALS: BP 147/45
[2022-05-08 08:00] VITALS: BP 131/44
[2022-05-08 09:17] LABS: CREATININE 5.18 mg/dL (0.70-1.30); POTASSIUM 5.5 mmol/L (3.4-5.1)
[2022-05-08 11:07] LABS: ACID FAST SPEC PROCESSING Direct Inoculation (.)
[2022-05-08 12:00] VITALS: BP 152/85
[2022-05-08 16:00] VITALS: BP 148/50
[2022-05-08 20:00] VITALS: BP 142/51
[2022-05-09] VITALS: BP 132/46
[2022-05-09 08:21] LABS: CREATININE 6.01 mg/dL (0.70-1.30); POTASSIUM 5.3 mmol/L (3.4-5.1)
[2022-05-09 09:27] LABS: BASO % 0.1 % (0.0-1.0); EOS # 0.1 10*3/uL (0.0-0.4); EOS % 1.3 % (1.0-4.0); HEMATOCRIT 25.3 % (42.0-52.0); LYMPH # 0.7 10*3/uL (1.3-4.4); LYMPH % 5.9 % (27.0-41.0); MEAN CELL VOLUME 95.8 fl (80.0-94.0); MEAN CORPUSCULAR HGB 30.7 pg (27.0-31.0); MONO # 0.8 10*3/uL (0.1-1.0); MONO % 7.3 % (3.0-9.0); NEUT # 9.3 10*3/uL (2.3-7.9); NEUT % 83.2 % (47.0-73.0); PLATELET COUNT AUTOMATED 104 10*3/uL (130-400); RED BLOOD COUNT 2.64 10*6/uL (4.50-5.90); RED CELL DISTRI WIDTH 16.5 % (0-14.5); WHITE BLOOD COUNT 11.1 10*3/uL (4.8-10.8)
[2022-05-09 12:00] VITALS: BP 118/63
[2022-05-09 16:00] VITALS: BP 117/50
[2022-05-09 20:00] VITALS: BP 148/50
[2022-05-10] VITALS: BP 154/46
[2022-05-10 06:44] LABS: CREATININE 4.49 mg/dL (0.70-1.30); POTASSIUM 4.8 mmol/L (3.4-5.1); TOTAL PROTEIN 5.3 gm/dL (6.0-8.0)
[2022-05-10 07:31] LABS: BASO % 0.2 % (0.0-1.0); EOS # 0.4 10*3/uL (0.0-0.4); EOS % 3.7 % (1.0-4.0); HEMATOCRIT 26.2 % (42.0-52.0); LYMPH # 1.2 10*3/uL (1.3-4.4); LYMPH % 10.9 % (27.0-41.0); MEAN CORPUSCULAR HGB 30.7 pg (27.0-31.0); MEAN CORPUSCULAR HGB CONC 31.7 g/dl (33.0-37.0); MONO # 0.9 10*3/uL (0.1-1.0); MONO % 8.7 % (3.0-9.0); NEUT % 74.4 % (47.0-73.0); PLATELET COUNT AUTOMATED 101 10*3/uL (130-400); RED CELL DISTRI WIDTH 16.6 % (0-14.5); WHITE BLOOD COUNT 10.8 10*3/uL (4.8-10.8)
[2022-05-10 08:00] VITALS: BP 157/51
[2022-05-10 12:00] VITALS: BP 144/48
[2022-05-10 16:00] VITALS: BP 145/55
[2022-05-10 20:00] VITALS: BP 137/54
[2022-05-11] VITALS: BP 143/58
[2022-05-11 07:45] LABS: BASO % 0.1 % (0.0-1.0); EOS # 0.6 10*3/uL (0.0-0.4); EOS % 5.1 % (1.0-4.0); HEMATOCRIT 28.6 % (42.0-52.0); LYMPH # 1.2 10*3/uL (1.3-4.4); LYMPH % 10.3 % (27.0-41.0); MEAN CELL VOLUME 97.3 fl (80.0-94.0); MEAN CORPUSCULAR HGB 30.6 pg (27.0-31.0); MEAN CORPUSCULAR HGB CONC 31.5 g/dl (33.0-37.0); MEAN PLATELET VOLUME 11.5 fl (9.6-12.3); MONO # 1.1 10*3/uL (0.1-1.0); MONO % 9.7 % (3.0-9.0); NEUT # 8.5 10*3/uL (2.3-7.9); NEUT % 72.9 % (47.0-73.0); PLATELET COUNT AUTOMATED 107 10*3/uL (130-400); RED BLOOD COUNT 2.94 10*6/uL (4.50-5.90); RED CELL DISTRI WIDTH 16.4 % (0-14.5); WHITE BLOOD COUNT 11.7 10*3/uL (4.8-10.8)
[2022-05-11 08:00] VITALS: BP 146/61
[2022-05-11 08:06] LABS: CREATININE 5.54 mg/dL (0.70-1.30); POTASSIUM 5.6 mmol/L (3.4-5.1)
[2022-05-11 12:00] VITALS: BP 150/55
[2022-05-11 16:00] VITALS: BP 141/58
[2022-05-11 20:00] VITALS: BP 148/63
[2022-05-12] VITALS: BP 140/61
[2022-05-12 06:44] LABS: BASO % 0.1 % (0.0-1.0); EOS # 0.5 10*3/uL (0.0-0.4); EOS % 3.3 % (1.0-4.0); HEMATOCRIT 26.7 % (42.0-52.0); LYMPH # 1.3 10*3/uL (1.3-4.4); LYMPH % 8.9 % (27.0-41.0); MEAN CELL VOLUME 95.7 fl (80.0-94.0); MEAN CORPUSCULAR HGB 30.8 pg (27.0-31.0); MEAN CORPUSCULAR HGB CONC 32.2 g/dl (33.0-37.0); MEAN PLATELET VOLUME 11.1 fl (9.6-12.3); MONO # 1.5 10*3/uL (0.1-1.0); MONO % 9.9 % (3.0-9.0); NEUT # 11.2 10*3/uL (2.3-7.9); NEUT % 76.3 % (47.0-73.0); PLATELET COUNT AUTOMATED 119 10*3/uL (130-400); RED BLOOD COUNT 2.79 10*6/uL (4.50-5.90); RED CELL DISTRI WIDTH 16.3 % (0-14.5); WHITE BLOOD COUNT 14.7 10*3/uL (4.8-10.8)
[2022-05-12 08:28] LABS: CREATININE 6.18 mg/dL (0.70-1.30); POTASSIUM 5.8 mmol/L (3.4-5.1)
[2022-05-12 12:00] VITALS: BP 128/48
[2022-05-12 16:00] VITALS: BP 153/44
[2022-05-12 20:00] VITALS: BP 148/36
[2022-05-12 20:12] VITALS: BP 132/54
[2022-05-13] VITALS: BP 140/51
[2022-05-13 06:49] LABS: CREATININE 4.67 mg/dL (0.70-1.30); POTASSIUM 5.8 mmol/L (3.4-5.1)
[2022-05-13 06:57] LABS: BASO % 0.2 % (0.0-1.0); EOS # 0.1 10*3/uL (0.0-0.4); EOS % 1.2 % (1.0-4.0); HEMATOCRIT 24.9 % (42.0-52.0); LYMPH # 0.8 10*3/uL (1.3-4.4); LYMPH % 7.4 % (27.0-41.0); MEAN CELL VOLUME 95.4 fl (80.0-94.0); MEAN CORPUSCULAR HGB 30.7 pg (27.0-31.0); MEAN CORPUSCULAR HGB CONC 32.1 g/dl (33.0-37.0); MEAN PLATELET VOLUME 11.4 fl (9.6-12.3); MONO # 0.9 10*3/uL (0.1-1.0); MONO % 8.2 % (3.0-9.0); NEUT % 81.4 % (47.0-73.0); PLATELET COUNT AUTOMATED 113 10*3/uL (130-400); RED BLOOD COUNT 2.61 10*6/uL (4.50-5.90); RED CELL DISTRI WIDTH 16.4 % (0-14.5); WHITE BLOOD COUNT 11.1 10*3/uL (4.8-10.8)
[2022-05-13 08:00] VITALS: BP 138/44
[2022-05-13] MEDS ORDERED: ALDACTONE25 MG PO (09:46)
[2022-05-13] MEDS ORDERED: PREMIERPRO RX ME1 GM IV (09:46)
[2022-05-13] MEDS ORDERED: VANCO 750750 MG/150 IV (09:46)
[2022-05-13 12:00] VITALS: BP 152/54
== END 2022-05-13 14:27 | disposition short-term general hospital (02) | DRG 901 ==
LOC: ED 13:52 → EDHOLD 16:55 → 5E 16:55 → EDHOLD 17:58 → 5E 20:20
PROVIDERS: Emergency Medicine; Family Medicine; Internal Medicine; Registered Nurse; Student in an Organized Health Care Education/Training Program; ADMIT Internal Medicine; ATTEND Internal Medicine
PROC: 5A1D70Z Performance of Urinary Filtration, Intermittent, Less than 6 Hours Per Day (ICD-10-PCS; 2022-05-02)
PROC: 5A1D70Z Performance of Urinary Filtration, Intermittent, Less than 6 Hours Per Day (ICD-10-PCS; 2022-05-05)
PROC: 0JBP0ZZ Excision of Left Lower Leg Subcutaneous Tissue and Fascia, Open Approach (ICD-10-PCS; principal; 2022-05-06)
PROC: 0W9930Z Drainage of Right Pleural Cavity with Drainage Device, Percutaneous Approach (ICD-10-PCS; 2022-05-07)
PROC: 5A1D70Z Performance of Urinary Filtration, Intermittent, Less than 6 Hours Per Day (ICD-10-PCS; 2022-05-07)
PROC: 5A1D70Z Performance of Urinary Filtration, Intermittent, Less than 6 Hours Per Day (ICD-10-PCS; 2022-05-12)
DX: T81.31XA Disruption of external operation (surgical) wound, not elsewhere classified, initial encounter (principal); J96.01 Acute respiratory failure with hypoxia; L89.153 Pressure ulcer of sacral region, stage 3; N18.6 End stage renal disease; I12.0 Hypertensive chronic kidney disease with stage 5 chronic kidney disease or end stage renal disease; N30.01 Acute cystitis with hematuria; E44.0 Moderate protein-calorie malnutrition; E87.1 Hypo-osmolality and hyponatremia; J91.8 Pleural effusion in other conditions classified elsewhere; M86.8X6 Other osteomyelitis, lower leg; L03.116 Cellulitis of left lower limb; I77.6 Arteritis, unspecified; E11.22 Type 2 diabetes mellitus with diabetic chronic kidney disease; E11.51 Type 2 diabetes mellitus with diabetic peripheral angiopathy without gangrene; E11.40 Type 2 diabetes mellitus with diabetic neuropathy, unspecified; D53.9 Nutritional anemia, unspecified; N40.1 Benign prostatic hyperplasia with lower urinary tract symptoms; I25.10 Atherosclerotic heart disease of native coronary artery without angina pectoris; E78.2 Mixed hyperlipidemia; F41.9 Anxiety disorder, unspecified; F32.A Depression, unspecified; E11.42 Type 2 diabetes mellitus with diabetic polyneuropathy; Y83.8 Other surgical procedures as the cause of abnormal reaction of the patient, or of later complication, without mention of misadventure at the time of the procedure; E78.5 Hyperlipidemia, unspecified; D69.6 Thrombocytopenia, unspecified; E11.65 Type 2 diabetes mellitus with hyperglycemia; I27.20 Pulmonary hypertension, unspecified; B96.1 Klebsiella pneumoniae [K. pneumoniae] as the cause of diseases classified elsewhere; E11.69 Type 2 diabetes mellitus with other specified complication; E66.01 Morbid (severe) obesity due to excess calories; Z95.810 Presence of automatic (implantable) cardiac defibrillator; Z79.4 Long term (current) use of insulin; S88.912S Complete traumatic amputation of left lower leg, level unspecified, sequela; I25.2 Old myocardial infarction; Z86.73 Personal history of transient ischemic attack (TIA), and cerebral infarction without residual deficits; Y92.89 Other specified places as the place of occurrence of the external cause; Z68.31 Body mass index [BMI] 31.0-31.9, adult

== ENCOUNTER → 2022-05-01 | Outpatient (CLI) | payer MEDICARE ==
[~2022-05-01] MED LIST changes: +ALDACTONE25 M1 PO; +AMIODARONE HCL100 M1 PO; +COZAAR50 M1 PO; +METOPROLOL SUCC50 M1 PO; +NORVASC5 MG PO; +PREDNISONE50 MG PO; +Synthroid,Levo50 MCG PO
== END | disposition home or self-care (01) ==
LOC: RESCLI 00:30
PROVIDERS: ATTEND Internal Medicine
DX: I13.11 Hypertensive heart and chronic kidney disease without heart failure, with stage 5 chronic kidney disease, or end stage renal disease (principal); E11.22 Type 2 diabetes mellitus with diabetic chronic kidney disease; I50.32 Chronic diastolic (congestive) heart failure; N18.6 End stage renal disease; K21.9 Gastro-esophageal reflux disease without esophagitis; I63.9 Cerebral infarction, unspecified; E78.5 Hyperlipidemia, unspecified; E87.5 Hyperkalemia; I73.9 Peripheral vascular disease, unspecified; F17.200 Nicotine dependence, unspecified, uncomplicated; I25.10 Atherosclerotic heart disease of native coronary artery without angina pectoris; Z79.4 Long term (current) use of insulin; Z79.899 Other long term (current) drug therapy; F32.A Depression, unspecified; E55.9 Vitamin D deficiency, unspecified; Z98.890 Other specified postprocedural states; Z82.49 Family history of ischemic heart disease and other diseases of the circulatory system; Z72.89 Other problems related to lifestyle; Z88.8 Allergy status to other drugs, medicaments and biological substances

== ENCOUNTER → 2022-07-15 | Outpatient (CLI) | payer MEDICARE ==
[~2022-07-15] MED LIST changes: +ADMELOG100 UNIT/1 SQ; +ALDACTONE25 M1 PO; +ALDACTONE25 MG PO; +AMIODARONE HCL100 M1 PO; +ATORVASTATIN CA20 M1 PO; +CHOLECALCIFEROL1 GM PO; +COZAAR50 M1 PO; +DICLOFENAC SOD100 G1 T; +DULOXETINE HCL30 MG PO; +LEVOTHYROXINE50 MCG PO; +METOPROLOL SUCC50 M1 PO; +NORVASC5 MG PO; +PREDNISONE50 MG PO; +PREMIERPRO RX ME1 GM IV; +Synthroid,Levo50 MCG PO; +VANCO 750750 MG/150 IV
== END | disposition home or self-care (01) ==
LOC: WOUNDCARE 02:09
PROVIDERS: ATTEND Nurse Practitioner Family
DX: T87.43 Infection of amputation stump, right lower extremity (principal); T81.89XA Other complications of procedures, not elsewhere classified, initial encounter; E11.622 Type 2 diabetes mellitus with other skin ulcer; L97.811 Non-pressure chronic ulcer of other part of right lower leg limited to breakdown of skin; L89.153 Pressure ulcer of sacral region, stage 3; E11.51 Type 2 diabetes mellitus with diabetic peripheral angiopathy without gangrene; E11.21 Type 2 diabetes mellitus with diabetic nephropathy; E11.43 Type 2 diabetes mellitus with diabetic autonomic (poly)neuropathy; E11.22 Type 2 diabetes mellitus with diabetic chronic kidney disease; I13.2 Hypertensive heart and chronic kidney disease with heart failure and with stage 5 chronic kidney disease, or end stage renal disease; N18.6 End stage renal disease; I50.9 Heart failure, unspecified; E11.319 Type 2 diabetes mellitus with unspecified diabetic retinopathy without macular edema; E66.01 Morbid (severe) obesity due to excess calories; G89.29 Other chronic pain; E78.5 Hyperlipidemia, unspecified; I87.2 Venous insufficiency (chronic) (peripheral); I25.10 Atherosclerotic heart disease of native coronary artery without angina pectoris; I25.2 Old myocardial infarction; N40.0 Benign prostatic hyperplasia without lower urinary tract symptoms; F41.9 Anxiety disorder, unspecified; F17.200 Nicotine dependence, unspecified, uncomplicated; F32.A Depression, unspecified; Z71.6 Tobacco abuse counseling; Z99.2 Dependence on renal dialysis; Z86.73 Personal history of transient ischemic attack (TIA), and cerebral infarction without residual deficits; Y83.8 Other surgical procedures as the cause of abnormal reaction of the patient, or of later complication, without mention of misadventure at the time of the procedure; Y83.5 Amputation of limb(s) as the cause of abnormal reaction of the patient, or of later complication, without mention of misadventure at the time of the procedure

== ENCOUNTER → 2022-08-26 | Outpatient (CLI) | payer MEDICARE ==
[~2022-08-26] MED LIST changes: +VANC1PIG IV
== END | disposition home or self-care (01) ==
LOC: RESCLI 01:23
PROVIDERS: ATTEND Internal Medicine
DX: E11.65 Type 2 diabetes mellitus with hyperglycemia (principal); M54.41 Lumbago with sciatica, right side; K59.00 Constipation, unspecified; G62.9 Polyneuropathy, unspecified; E78.5 Hyperlipidemia, unspecified; Z79.4 Long term (current) use of insulin; Z79.2 Long term (current) use of antibiotics; Z88.5 Allergy status to narcotic agent; Z88.2 Allergy status to sulfonamides; Z98.890 Other specified postprocedural states; Z79.899 Other long term (current) drug therapy

== ENCOUNTER → 2022-10-08 | Outpatient (CLI) | payer MEDICARE ==
[~2022-10-08] MED LIST changes: -AMIODARONE HCL100 M1 PO; +AMIODARONE HYD200 MG PO; +AMLODIPINE BESYL5 MG PO; +DOXYCYCLINE MO100 MG PO; +LEVEMIR100 UNIT/1 SC; +LOKELMA10 GM PO; +MAGNESIUM OXID400 MG PO; +PAROXETINE HCL20 MG PO; +REGLAN5 MG PO
== END | disposition home or self-care (01) ==
LOC: RESCLI 14:49
PROVIDERS: ATTEND Internal Medicine
DX: I12.0 Hypertensive chronic kidney disease with stage 5 chronic kidney disease or end stage renal disease (principal); N18.6 End stage renal disease; E03.9 Hypothyroidism, unspecified; G89.29 Other chronic pain; Z79.4 Long term (current) use of insulin; E11.65 Type 2 diabetes mellitus with hyperglycemia; J18.0 Bronchopneumonia, unspecified organism; E78.5 Hyperlipidemia, unspecified; F32.5 Major depressive disorder, single episode, in full remission; F17.210 Nicotine dependence, cigarettes, uncomplicated; Z72.89 Other problems related to lifestyle; Z98.890 Other specified postprocedural states; Z79.899 Other long term (current) drug therapy

== ENCOUNTER → 2022-11-06 | Outpatient (CLI) | payer MEDICARE | END | disposition home or self-care (01) | LOC: RESCLI 00:49 | PROVIDERS: ATTEND Internal Medicine | DX: I13.2 Hypertensive heart and chronic kidney disease with heart failure and with stage 5 chronic kidney disease, or end stage renal disease (principal); I50.32 Chronic diastolic (congestive) heart failure; E11.22 Type 2 diabetes mellitus with diabetic chronic kidney disease; N18.6 End stage renal disease; E11.65 Type 2 diabetes mellitus with hyperglycemia; E11.40 Type 2 diabetes mellitus with diabetic neuropathy, unspecified; F32.5 Major depressive disorder, single episode, in full remission; E78.5 Hyperlipidemia, unspecified; N40.1 Benign prostatic hyperplasia with lower urinary tract symptoms; M54.50 Low back pain, unspecified; G89.29 Other chronic pain; E03.9 Hypothyroidism, unspecified; I25.2 Old myocardial infarction; Z78.9 Other specified health status; Z79.4 Long term (current) use of insulin; Z79.899 Other long term (current) drug therapy; Z79.82 Long term (current) use of aspirin; Z99.2 Dependence on renal dialysis; Z88.5 Allergy status to narcotic agent ==

== ENCOUNTER → 2022-11-28 | Outpatient (CLI) | payer MEDICARE | END | disposition home or self-care (01) | LOC: WOUNDCARE 00:25 | PROVIDERS: ATTEND Nurse Practitioner Family | DX: E11.622 Type 2 diabetes mellitus with other skin ulcer (principal); L98.491 Non-pressure chronic ulcer of skin of other sites limited to breakdown of skin; E11.22 Type 2 diabetes mellitus with diabetic chronic kidney disease; I13.2 Hypertensive heart and chronic kidney disease with heart failure and with stage 5 chronic kidney disease, or end stage renal disease; N18.6 End stage renal disease; E11.319 Type 2 diabetes mellitus with unspecified diabetic retinopathy without macular edema; I25.10 Atherosclerotic heart disease of native coronary artery without angina pectoris; I25.2 Old myocardial infarction; N40.0 Benign prostatic hyperplasia without lower urinary tract symptoms; E78.5 Hyperlipidemia, unspecified; E11.40 Type 2 diabetes mellitus with diabetic neuropathy, unspecified; E66.01 Morbid (severe) obesity due to excess calories; F41.9 Anxiety disorder, unspecified; Z99.2 Dependence on renal dialysis; Z87.891 Personal history of nicotine dependence; Z79.4 Long term (current) use of insulin ==

== ENCOUNTER → 2022-12-24 | Outpatient (CLI) | payer MEDICARE | END | disposition home or self-care (01) | LOC: WOUNDCARE 01:56 | PROVIDERS: ATTEND Nurse Practitioner Family | DX: T81.89XA Other complications of procedures, not elsewhere classified, initial encounter (principal); E11.621 Type 2 diabetes mellitus with foot ulcer; L97.522 Non-pressure chronic ulcer of other part of left foot with fat layer exposed; L89.890 Pressure ulcer of other site, unstageable; L03.012 Cellulitis of left finger; L85.3 Xerosis cutis; E11.319 Type 2 diabetes mellitus with unspecified diabetic retinopathy without macular edema; E11.40 Type 2 diabetes mellitus with diabetic neuropathy, unspecified; E11.22 Type 2 diabetes mellitus with diabetic chronic kidney disease; I13.2 Hypertensive heart and chronic kidney disease with heart failure and with stage 5 chronic kidney disease, or end stage renal disease; N18.6 End stage renal disease; I50.9 Heart failure, unspecified; E11.51 Type 2 diabetes mellitus with diabetic peripheral angiopathy without gangrene; G89.29 Other chronic pain; E66.01 Morbid (severe) obesity due to excess calories; E55.9 Vitamin D deficiency, unspecified; E78.5 Hyperlipidemia, unspecified; I73.00 Raynaud's syndrome without gangrene; R22.9 Localized swelling, mass and lump, unspecified; I25.2 Old myocardial infarction; N40.0 Benign prostatic hyperplasia without lower urinary tract symptoms; I25.10 Atherosclerotic heart disease of native coronary artery without angina pectoris; F32.A Depression, unspecified; F41.9 Anxiety disorder, unspecified; Z86.73 Personal history of transient ischemic attack (TIA), and cerebral infarction without residual deficits; Z89.611 Acquired absence of right leg above knee; Z89.512 Acquired absence of left leg below knee; Z99.2 Dependence on renal dialysis; Z87.891 Personal history of nicotine dependence ==

== ENCOUNTER → 2022-12-31 | Outpatient (CLI) | payer MEDICARE | END | disposition home or self-care (01) | LOC: WOUNDCARE 02:19 | PROVIDERS: ATTEND Nurse Practitioner Family | DX: T81.89XD Other complications of procedures, not elsewhere classified, subsequent encounter (principal); E11.621 Type 2 diabetes mellitus with foot ulcer; L97.521 Non-pressure chronic ulcer of other part of left foot limited to breakdown of skin; L89.890 Pressure ulcer of other site, unstageable; L03.012 Cellulitis of left finger; L85.3 Xerosis cutis; E11.319 Type 2 diabetes mellitus with unspecified diabetic retinopathy without macular edema; E11.40 Type 2 diabetes mellitus with diabetic neuropathy, unspecified; E11.22 Type 2 diabetes mellitus with diabetic chronic kidney disease; I13.2 Hypertensive heart and chronic kidney disease with heart failure and with stage 5 chronic kidney disease, or end stage renal disease; N18.6 End stage renal disease; I50.9 Heart failure, unspecified; E11.51 Type 2 diabetes mellitus with diabetic peripheral angiopathy without gangrene; E66.01 Morbid (severe) obesity due to excess calories; G89.29 Other chronic pain; E55.9 Vitamin D deficiency, unspecified; E78.5 Hyperlipidemia, unspecified; I73.00 Raynaud's syndrome without gangrene; R22.9 Localized swelling, mass and lump, unspecified; I25.2 Old myocardial infarction; N40.0 Benign prostatic hyperplasia without lower urinary tract symptoms; I25.10 Atherosclerotic heart disease of native coronary artery without angina pectoris; F32.A Depression, unspecified; F41.9 Anxiety disorder, unspecified; Z99.2 Dependence on renal dialysis; Z86.73 Personal history of transient ischemic attack (TIA), and cerebral infarction without residual deficits; Z87.891 Personal history of nicotine dependence; Y83.8 Other surgical procedures as the cause of abnormal reaction of the patient, or of later complication, without mention of misadventure at the time of the procedure ==

== ENCOUNTER → 2023-01-02 | Outpatient (CLI) | payer MEDICARE | END | disposition home or self-care (01) | LOC: CT 01:11 | PROVIDERS: ATTEND Nurse Practitioner Family | DX: L03.012 Cellulitis of left finger (principal); I73.00 Raynaud's syndrome without gangrene; R22.32 Localized swelling, mass and lump, left upper limb; I70.90 Unspecified atherosclerosis ==

== ENCOUNTER → 2023-01-09 | Outpatient (CLI) | payer MEDICARE | END | disposition home or self-care (01) | LOC: WOUNDCARE 01:32 | PROVIDERS: ATTEND Nurse Practitioner Family | DX: T81.89XD Other complications of procedures, not elsewhere classified, subsequent encounter (principal); L97.522 Non-pressure chronic ulcer of other part of left foot with fat layer exposed; L89.890 Pressure ulcer of other site, unstageable; L03.012 Cellulitis of left finger; L85.3 Xerosis cutis; G89.29 Other chronic pain; E55.9 Vitamin D deficiency, unspecified; E11.22 Type 2 diabetes mellitus with diabetic chronic kidney disease; I13.2 Hypertensive heart and chronic kidney disease with heart failure and with stage 5 chronic kidney disease, or end stage renal disease; N18.6 End stage renal disease; I50.9 Heart failure, unspecified; E11.319 Type 2 diabetes mellitus with unspecified diabetic retinopathy without macular edema; E11.51 Type 2 diabetes mellitus with diabetic peripheral angiopathy without gangrene; E11.40 Type 2 diabetes mellitus with diabetic neuropathy, unspecified; I73.00 Raynaud's syndrome without gangrene; E78.5 Hyperlipidemia, unspecified; R22.9 Localized swelling, mass and lump, unspecified; E66.01 Morbid (severe) obesity due to excess calories; I25.2 Old myocardial infarction; I25.10 Atherosclerotic heart disease of native coronary artery without angina pectoris; N40.0 Benign prostatic hyperplasia without lower urinary tract symptoms; F41.9 Anxiety disorder, unspecified; F32.A Depression, unspecified; Z86.73 Personal history of transient ischemic attack (TIA), and cerebral infarction without residual deficits; Z99.2 Dependence on renal dialysis; Z87.891 Personal history of nicotine dependence; Y83.8 Other surgical procedures as the cause of abnormal reaction of the patient, or of later complication, without mention of misadventure at the time of the procedure ==

== ENCOUNTER → 2023-01-14 | Outpatient (CLI) | payer MEDICARE | END | disposition home or self-care (01) | LOC: WOUNDCARE 01:25 | PROVIDERS: ATTEND Nurse Practitioner Family | DX: T81.89XD Other complications of procedures, not elsewhere classified, subsequent encounter (principal); E11.621 Type 2 diabetes mellitus with foot ulcer; L97.522 Non-pressure chronic ulcer of other part of left foot with fat layer exposed; L89.890 Pressure ulcer of other site, unstageable; L85.3 Xerosis cutis; L03.012 Cellulitis of left finger; E11.22 Type 2 diabetes mellitus with diabetic chronic kidney disease; I13.2 Hypertensive heart and chronic kidney disease with heart failure and with stage 5 chronic kidney disease, or end stage renal disease; N18.6 End stage renal disease; I50.9 Heart failure, unspecified; E78.5 Hyperlipidemia, unspecified; E55.9 Vitamin D deficiency, unspecified; E11.51 Type 2 diabetes mellitus with diabetic peripheral angiopathy without gangrene; E11.40 Type 2 diabetes mellitus with diabetic neuropathy, unspecified; E11.319 Type 2 diabetes mellitus with unspecified diabetic retinopathy without macular edema; E66.01 Morbid (severe) obesity due to excess calories; I73.00 Raynaud's syndrome without gangrene; G89.29 Other chronic pain; R22.9 Localized swelling, mass and lump, unspecified; I25.2 Old myocardial infarction; N40.0 Benign prostatic hyperplasia without lower urinary tract symptoms; I25.10 Atherosclerotic heart disease of native coronary artery without angina pectoris; F32.A Depression, unspecified; F41.9 Anxiety disorder, unspecified; Z86.73 Personal history of transient ischemic attack (TIA), and cerebral infarction without residual deficits; Z87.891 Personal history of nicotine dependence; Z99.2 Dependence on renal dialysis; Y83.8 Other surgical procedures as the cause of abnormal reaction of the patient, or of later complication, without mention of misadventure at the time of the procedure ==

== ENCOUNTER → 2023-01-21 | Outpatient (CLI) | payer MEDICARE | END | disposition home or self-care (01) | LOC: WOUNDCARE 01:24 | PROVIDERS: ATTEND Nurse Practitioner Family | DX: T81.89XD Other complications of procedures, not elsewhere classified, subsequent encounter (principal); E11.622 Type 2 diabetes mellitus with other skin ulcer; L98.492 Non-pressure chronic ulcer of skin of other sites with fat layer exposed; L89.890 Pressure ulcer of other site, unstageable; L03.012 Cellulitis of left finger; E11.22 Type 2 diabetes mellitus with diabetic chronic kidney disease; I13.2 Hypertensive heart and chronic kidney disease with heart failure and with stage 5 chronic kidney disease, or end stage renal disease; I50.9 Heart failure, unspecified; N18.6 End stage renal disease; E11.51 Type 2 diabetes mellitus with diabetic peripheral angiopathy without gangrene; E11.319 Type 2 diabetes mellitus with unspecified diabetic retinopathy without macular edema; E11.40 Type 2 diabetes mellitus with diabetic neuropathy, unspecified; G89.29 Other chronic pain; E55.9 Vitamin D deficiency, unspecified; E78.5 Hyperlipidemia, unspecified; I73.00 Raynaud's syndrome without gangrene; L85.3 Xerosis cutis; R60.9 Edema, unspecified; E66.01 Morbid (severe) obesity due to excess calories; I25.10 Atherosclerotic heart disease of native coronary artery without angina pectoris; I25.2 Old myocardial infarction; N40.0 Benign prostatic hyperplasia without lower urinary tract symptoms; F32.A Depression, unspecified; Z86.73 Personal history of transient ischemic attack (TIA), and cerebral infarction without residual deficits; Z99.2 Dependence on renal dialysis; Z89.512 Acquired absence of left leg below knee; Z87.891 Personal history of nicotine dependence; Z89.611 Acquired absence of right leg above knee; Y83.8 Other surgical procedures as the cause of abnormal reaction of the patient, or of later complication, without mention of misadventure at the time of the procedure ==

== ENCOUNTER 2023-01-28 15:06 | Emergency (ER) | payer MEDICARE ==
[~2023-01-28] VITALS: Ht 177.8 cm; Wt 98.0 kg
[2023-01-28] MEDS ORDERED: ASPIRIN81 M1 PO (15:31)
[2023-01-28 17:25] LABS: BASO % 0.6 % (0.0-1.0); EOS # 0.2 10*3/uL (0.0-0.4); EOS % 3.3 % (1.0-4.0); HEMATOCRIT 37.6 % (42.0-52.0); LYMPH # 1.5 10*3/uL (1.3-4.4); LYMPH % 20.8 % (27.0-41.0); MEAN CELL VOLUME 94.7 fl (80.0-94.0); MEAN CORPUSCULAR HGB 28.2 pg (27.0-31.0); MEAN CORPUSCULAR HGB CONC 29.8 g/dl (33.0-37.0); MEAN PLATELET VOLUME 11.3 fl (9.6-12.3); MONO # 0.7 10*3/uL (0.1-1.0); MONO % 9.9 % (3.0-9.0); NEUT # 4.5 10*3/uL (2.3-7.9); NEUT % 64.5 % (47.0-73.0); PLATELET COUNT AUTOMATED 147 10*3/uL (130-400); RED BLOOD COUNT 3.97 10*6/uL (4.50-5.90)
[2023-01-28 17:37] LABS: ALKALINE PHOSPHATASE 185 U/L (46-116); BUN 17 mg/dl (9-23); CHLORIDE 101 mmol/L (98-107); POTASSIUM 4.8 mmol/L (3.4-5.1); TOTAL PROTEIN 7.2 gm/dL (6.0-8.0)
[2023-01-28 17:42] LABS: SGPT/ALT < 7 U/L (10-49)
== END 2023-01-28 21:42 | disposition home or self-care (01) ==
LOC: ED 15:06
PROVIDERS: Nurse Practitioner
DX: S50.12XA Contusion of left forearm, initial encounter (principal); S50.11XA Contusion of right forearm, initial encounter; R51.9 Headache, unspecified; M25.522 Pain in left elbow; M25.511 Pain in right shoulder; M25.531 Pain in right wrist; R42 Dizziness and giddiness; N18.9 Chronic kidney disease, unspecified; F17.290 Nicotine dependence, other tobacco product, uncomplicated; Z79.899 Other long term (current) drug therapy; Z79.82 Long term (current) use of aspirin; Z90.89 Acquired absence of other organs; Z79.4 Long term (current) use of insulin; Z89.512 Acquired absence of left leg below knee; Z89.511 Acquired absence of right leg below knee; Z98.890 Other specified postprocedural states; Z99.2 Dependence on renal dialysis; W05.0XXA Fall from non-moving wheelchair, initial encounter; Y93.89 Activity, other specified; Y92.238 Other place in hospital as the place of occurrence of the external cause; Y99.8 Other external cause status

== ENCOUNTER → 2023-02-04 | Outpatient (CLI) | payer MEDICARE ==
[~2023-02-04] MED LIST changes: +ASPIRIN81 M1 PO; +PAROXETINE20 MG PO
== END | disposition home or self-care (01) ==
LOC: WOUNDCARE 01:19
PROVIDERS: ATTEND Nurse Practitioner Family
DX: T81.89XD Other complications of procedures, not elsewhere classified, subsequent encounter (principal); E11.622 Type 2 diabetes mellitus with other skin ulcer; L98.492 Non-pressure chronic ulcer of skin of other sites with fat layer exposed; L89.890 Pressure ulcer of other site, unstageable; L03.012 Cellulitis of left finger; G89.29 Other chronic pain; E55.9 Vitamin D deficiency, unspecified; E11.22 Type 2 diabetes mellitus with diabetic chronic kidney disease; I13.2 Hypertensive heart and chronic kidney disease with heart failure and with stage 5 chronic kidney disease, or end stage renal disease; N18.6 End stage renal disease; I50.9 Heart failure, unspecified; E78.5 Hyperlipidemia, unspecified; E11.51 Type 2 diabetes mellitus with diabetic peripheral angiopathy without gangrene; E11.40 Type 2 diabetes mellitus with diabetic neuropathy, unspecified; I73.00 Raynaud's syndrome without gangrene; L85.3 Xerosis cutis; R60.9 Edema, unspecified; I25.10 Atherosclerotic heart disease of native coronary artery without angina pectoris; E66.01 Morbid (severe) obesity due to excess calories; N40.0 Benign prostatic hyperplasia without lower urinary tract symptoms; E11.319 Type 2 diabetes mellitus with unspecified diabetic retinopathy without macular edema; F41.9 Anxiety disorder, unspecified; F32.A Depression, unspecified; I25.2 Old myocardial infarction; Z99.2 Dependence on renal dialysis; Z86.73 Personal history of transient ischemic attack (TIA), and cerebral infarction without residual deficits; Z87.891 Personal history of nicotine dependence; Y83.8 Other surgical procedures as the cause of abnormal reaction of the patient, or of later complication, without mention of misadventure at the time of the procedure

== ENCOUNTER 2023-03-28 08:31 | Emergency (ER) | payer MEDICARE ==
[~2023-03-28] VITALS: Wt 99.8 kg
[~2023-03-28 08:31] MED LIST changes: +CALCIUM CARBON200 MG PO; +METOPROLOL SUCC25 M2 PO; +VANCOCIN125 M1 PO
== END 2023-03-28 11:12 ==
LOC: ED 08:31
DX: S51.012A Laceration without foreign body of left elbow, initial encounter (principal); S06.9X0A Unspecified intracranial injury without loss of consciousness, initial encounter; Z79.899 Other long term (current) drug therapy; Z88.1 Allergy status to other antibiotic agents; Z79.82 Long term (current) use of aspirin; Z79.4 Long term (current) use of insulin; Z98.890 Other specified postprocedural states; Z95.0 Presence of cardiac pacemaker; W06.XXXA Fall from bed, initial encounter; Y93.89 Activity, other specified; Y92.89 Other specified places as the place of occurrence of the external cause; Y99.8 Other external cause status

== ENCOUNTER → 2023-04-30 | Outpatient (CLI) | payer MEDICARE | END | disposition home or self-care (01) | LOC: CT 11:00 | PROVIDERS: ATTEND Nurse Practitioner Primary Care | DX: S61.201A Unspecified open wound of left index finger without damage to nail, initial encounter (principal); I13.2 Hypertensive heart and chronic kidney disease with heart failure and with stage 5 chronic kidney disease, or end stage renal disease; I50.9 Heart failure, unspecified; N18.6 End stage renal disease; I25.10 Atherosclerotic heart disease of native coronary artery without angina pectoris; I70.90 Unspecified atherosclerosis; R22.9 Localized swelling, mass and lump, unspecified; X58.XXXA Exposure to other specified factors, initial encounter; Y93.89 Activity, other specified; Y92.89 Other specified places as the place of occurrence of the external cause; Y99.8 Other external cause status; K21.9 Gastro-esophageal reflux disease without esophagitis ==

== ENCOUNTER 2023-05-26 16:10 | Emergency (ER) | payer MEDICARE ==
[~2023-05-26] VITALS: Wt 102.5 kg
[2023-05-26 16:23] VITALS: BP 109/68
[2023-05-26 17:07] LABS: TOTAL PROTEIN 7.8 gm/dL (6.0-8.0)
[2023-05-26 17:34] LABS: POTASSIUM 8.3 mmol/L (3.4-5.1)
[2023-05-26] MEDS ORDERED: LIPITOR20 MG PO (17:43)
[2023-05-26] MEDS ORDERED: BISACODYL10 MG R (17:44)
[2023-05-26] MEDS ORDERED: ALEVE ARTHRITI100 GM T (17:45)
[2023-05-26] MEDS ORDERED: GERI-TUSSI100 MG/5 M PO (17:46)
[2023-05-26] MEDS ORDERED: HUMALOG TE100 UNIT/1 SQ (17:46)
== END 2023-05-26 22:00 ==
LOC: ED 16:10 → EDHOLD 18:24 → ED 18:24
PROVIDERS: Emergency Medicine
DX: I46.9 Cardiac arrest, cause unspecified (principal); E87.5 Hyperkalemia; I10 Essential (primary) hypertension; I25.2 Old myocardial infarction; I25.10 Atherosclerotic heart disease of native coronary artery without angina pectoris; F41.9 Anxiety disorder, unspecified; Z87.442 Personal history of urinary calculi; E11.40 Type 2 diabetes mellitus with diabetic neuropathy, unspecified; Z98.890 Other specified postprocedural states